=== PATIENT | female | born 1950 | race African-American/Black ===

== ENCOUNTER 2016-10-23 00:55 | Inpatient (IN) ==
--- NOTE | 2016-10-23 03:03 | Emergency Department Note ---
Arrival - Arrival Chief Complaint: Shortness of Breath Stated Complaint: low H/H ED Nursing Triage Note: Patient to ED via EMS as a transfer from [facility] ED for further treatment of SOB and low H/H. Patient became SOB yesterday around 1400, and got worse which prompted her to go to the ED. Labs shown H/H of 06/14 RBC 2.4 PLT 531. Patient denies any bleeding but states she has chronic anemia and the doctor at [facility] told patient she had some blood in her stool. Patient denies recent color change in her stools. Patient arrives with 1 unit PRBC infusing. Mode of Arrival: Stretcher Time Seen by Provider: 10/23/16 02:20 - History of Present Illness HPI Narrative: This is a 66-year-old female of descent with a history of hypertension who presents with a hemoglobin of 4 from [facility] where she presented for shortness of breath. She has received 1 unit of packed red blood cells and was transferred to [facility] for admission. The patient recalls that in 1977 she had heavy menstrual periods and required a blood transfusion at that time. She does not recall if she has had a hysterectomy. She denies any blood in her stools but says that the physician at the other hospital did a rectal exam and found that her stool was guaiac positive. At the time of her last transfusion it was discovered by virtue of the fact that she had a syncopal episode. Date of Last Menstrual Period: menopause Allergies/Adverse Reactions: Allergies Allergy/AdvReac Type Severity Reaction Status Date / Time celecoxib [From Celebrex] Allergy HIVES Verified 10/23/16 01:08 Review of System - Review of System Constitutional: Absent: fever, weakness Eyes: Absent: redness Head/Ears/Nose/Throat: Absent: epistaxis Respiratory: Present: other (Shortness of breath). Absent: respiratory distress , wheezing Cardiovascular: Absent: dyspnea on exertion, orthopnea Gastrointestinal: Absent: diarrhea, hematemesis, melena Genitourinary female: Absent: frequency, genital lesions, hematuria Musculoskeletal: Absent: joint swelling, lower back pain Skin: Absent: change in color, change in hair/nails Neurological: Absent: numbness, paresthesias Psychiatric: Absent: suicidal thoughts, homicidal thoughts Endocrine: Absent: heat intolerance, polydipsia, polyuria Hematological/Lymphatic: Absent: easy bruising, lymphadenopathy Allergic/Immunologic: Absent: urticaria, itchy eyes Medical,Surgical,& Family Hx - Medical History Cardio: History of: Hypertension Endocrine: History of: Diabetes Mellitus (NIDDM) Hematology: History of: Anemia - Social History Smoking Status: Never smoker Frequency of Alcohol Use: None Type of Drug Use: None Exam Vital Signs: Vital Signs Temperature 99.2 F 10/23/16 01:02 Pulse Rate 92 H 10/23/16 01:02 Respiratory Rate 20 10/23/16 01:02 Blood Pressure 129/63 10/23/16 01:02 O2 Sat by Pulse Oximetry 100 10/23/16 01:02 - Head Head exam: Present: atraumatic - Eye Eye exam: Present: PERRL, EOMI - ENT ENT exam: Present: normal exam - Neck Neck exam: Present: normal inspection, full ROM - Chest Chest inspection: Present: normal inspection, symmetric chest wall rise - Respiratory Respiratory exam: Present: normal lung sounds bilaterally - Cardiovascular Cardiovascular exam: Present: regular rate, normal rhythm - Abdominal Exam Abdominal exam: Present: soft, normal bowel sounds - Rectal Exam Rectal exam: Present: other (The rectal examination at [facility] was reported to be guaiac positive) - Extremities Exam Extremities exam: Present: normal inspection, full ROM - Back Exam Back exam: Present: normal inspection, full ROM - Neurological Exam Neurological exam: Present: alert, oriented X3 - Psychiatric Psychiatric exam: Present: normal affect - Skin Skin exam: Present: warm, dry
--- NOTE | 2016-10-23 03:46 | Hospitalist History & Physical ---
Assessment and Plan (1) Acute blood loss anemia Status: Acute Assessment and plan: The doctor at [facility] told patient she had some blood in her stool. Patient had never noticed. Plan transfuse with 2 more units of blood, follow cbc afterwards IV protonix NPO till GI evaluates GI consult INR Fe studies IVF Stool for occult blood Current Visit: Yes (2) HTN (hypertension) Status: Acute Assessment and plan: stable Current Visit: Yes (3) Diabetes mellitus Status: Acute Assessment and plan: will place on SSC, accu cheks and get HbA1c level. Current Visit: Yes (4) Symptomatic anemia Status: Acute Assessment and plan: Patient became short winded with a H/H-4.9/17.2. Plan Transfuse with 2more units, GI consult. Current Visit: Yes History of Present Illness Chief complaint: SOB History of present illness: Ms. Avina is a 66 year old female with a history of HTN, DM, anemia who was sent from [facility] for evaluation of low H/H of 4.9/17.2. She was well until yesterday when she became short winded and weak. She denies light headedness, chest pain, and chest tightness. No nausea, vomiting,abdominal pain, hemetesis or melena stools.No history of liver disease, no bleeding problems and not on any blood thinners, aspirin or NSAIDs. She has a history of anemia which was said to be secondary to her heavy menstrual bleeds but she has been menopausal for the last 6-8yrs. The doctor at [facility] told patient she had some blood in her stool which she had never noticed. She was transferred with 1 unit of PRBc transfusing .She is currently hemodynamically stable. Allergies Allergy/AdvReac Type Severity Reaction Status Date / Time celecoxib [From Celebrex] Allergy HIVES Verified 10/23/16 01:08 Medical,Surgical,& Family Hx - Medical History Cardio: History of: Hypertension Endocrine: History of: Diabetes Mellitus (NIDDM) Hematology: History of: Anemia - Social History Smoking Status: Never smoker Frequency of Alcohol Use: None Type of Drug Use: None 12 point system: reviewed and no additional remarkable complaints except as stated Exam - Constitutional Vitals: Period Temp Pulse Resp BP Sys/Thompson Pulse Ox Last 24 Hr 99.2 F-99.2 F 92-92 20-20 129-129/63-63 100 General appearance: no acute distress - Head Head exam: Present: normal inspection - Respiratory Respiratory exam: Present: clear to auscultation bilaterally - Cardiovascular Cardiovascular exam: Present: regular rate and rhythm - GI/Abdominal GI/Abdominal exam: Present: normal bowel sounds - Extremities Exam Extremities exam: Present: normal inspection - Neurological Exam Neurological exam: Present: alert, oriented X3 Results - Labs Lab Results: I have reviewed the past 24 hour labs
[2016-10-23] MEDS ORDERED: SODIUM CHLORIDE 0.9% 250 ML IV PRN (05:16)
[2016-10-23] MEDS ORDERED: ACETAMINOPHEN 325 MG TABLET PO PRN (05:16)
[2016-10-23 07:05] LABS: % Iron Saturation 13.4 % (18-50); Free T4 (Free Thyroxine) 1.09 NG/DL (0.76-1.46)
[2016-10-23] MEDS: SODIUM CHLORIDE 0.9% 1,000 ML IV SCH (08:16)
[2016-10-23 08:51] LABS: Basophils % 0.3 % (0.0-0.8); Eosinophils # 0.1 10*3/uL (0.0-0.87); Eosinophils % 1.3 % (0.00-10.9); Hematocrit 19.9 VOL% (35.7-47.0); Immature Granulocytes % 0.4 %; Immature Granulocytes Absolute 0.03 #; Lymphocytes # 0.9 10*3/uL (1.4-4.0); Lymphocytes % 13.4 % (21.3-54.2); Mean Corpuscular HGB Conc 31.2 GM/DL (32-36); Mean Corpuscular Hemoglobin 22 PG (27-34); Mean Corpuscular Volume 71.6 FL (87-102); Mean Platelet Volume 10.4 FL (9.6-12.0); Monocytes # 0.7 10*3/uL (0.11-0.8); Monocytes % 9.6 % (1.7-12.7); Neutrophils # 5.2 10*3/uL (1.4-7.4); Platelet Count 451 T/CUMM (130-400); Red Blood Count 2.78 MC/CUMM (3.8-5.5); Red Cell Distribution Width 19.1 % (9.3-17.3); White Blood Count 6.9 T/CUMM (4-12)
[2016-10-23 08:55] LABS: Hemoglobin 6.2 GM/DL (12.0-16.0)
--- NOTE | 2016-10-23 08:58 | Gastrointestinal Consult Note ---
Assessment and Plan - Time spent with patient Time spent with patient: Greater than 30 minutes (1) Symptomatic anemia Status: Acute Current Visit: Yes (2) Other specified counseling Status: Acute Current Visit: Yes History of Present Illness History of present illness: Ms. Avina is a 66 year old female Home Medications Medication Instructions Recorded Confirmed Type Albuterol Sulfate [Proair HFA] 2 puff INH Q4HR PRN 10/23/16 10/23/16 History Aspirin 81 mg PO DAILY 10/23/16 10/23/16 History Atorvastatin Calcium 20 mg PO DAILY 10/23/16 10/23/16 History Ergocalciferol (Vitamin D2) 50,000 unit PO Q7DAY 10/23/16 10/23/16 History [Vitamin D2] Ferrous Sulfate 325 mg PO TID 10/23/16 10/23/16 History Fluorometholone 0.1% Oph Susp [FML 1 drop BOTH EYES BID 10/23/16 10/23/16 History 0.1% Oph Susp] Loratadine 10 mg PO DAILY 10/23/16 10/23/16 History Magnesium Oxide [Magox 400] 400 mg PO DAILY 10/23/16 10/23/16 History Metformin HCl 2,000 mg PO DAILY 10/23/16 10/23/16 History Potassium Chloride 20 meq PO DAILY 10/23/16 10/23/16 History Quinapril HCl 40 mg PO DAILY 10/23/16 10/23/16 History Tizanidine HCl 2 mg PO BID PRN 10/23/16 10/23/16 History Travoprost 0.004% Oph Soln 1 drop MISC DAILY 10/23/16 10/23/16 History [Travatan Z] hydroCHLOROthiazide 25 mg PO DAILY 10/23/16 10/23/16 History [Hydrochlorothiazide] Allergies Allergy/AdvReac Type Severity Reaction Status Date / Time celecoxib [From Celebrex] Allergy HIVES Verified 10/23/16 01:08 Medical,Surgical,& Family Hx - Medical History Cardio: History of: Hypertension Endocrine: History of: Diabetes Mellitus (NIDDM) Hematology: History of: Anemia - Family History Family History: Reports;: Family Hypertension (mother) - Social History Smoking Status: Never smoker Frequency of Alcohol Use: None Type of Drug Use: None Exam - Constitutional Vitals: Period Temp Pulse Resp BP Sys/Thompson Pulse Ox Last 24 Hr 98.7 F-99.2 F 73-92 18-20 111-129/57-68 100-100 Results - Labs CBC & BMP: 10/23/16 10:13 Quality Measures - VTE Contraindication to Pharmacological VTE Prophylaxis: Active Bleeding Note Addendum: PLEASE NOTE -- automatic citation of patient information is unavoidable in this electronic note. I have made a reasonable effort to review the information cited , but it is not a part of my evaluation, impression, or recommendation unless specifically discussed in the dictated text that follows. As well, voice recognition software was used in the creation of this clinical note. Reasonable effort was made to identify and correct gross errors. Despite proofreading, errors in [employer] consultant may be present, including nonsense verbiage at times. If you encounter such an error, please contact me at for discussion and correction. -- Gorge Chief complaint: anemia, fatigue History of present illness: This is a new patient, a 66-year-old female seen by consultation for evaluation of symptomatic anemia with intractable fatigue. The patient is admitted to the telemetry floor under the care of Dr. Lemos with a primary diagnosis of acute blood loss anemia. The patient was admitted by transfer from [facility] with primary complaint of intractable fatigue. Evaluation at that time revealed severe anemia with hemoglobin less than 5 g/dL. There is equivocal report of a positive observation of blood in the stool, but I think this is actually a positive fecal occult blood test. The patient herself has not seen any change in her bowel pattern, neither has she seen overt blood in her stool. She reports several months history of anorexia with early satiety and an associated weight loss of more than 25 pounds from a baseline of 150 pounds. She reports that food just doesn't taste good anymore. When she tries to eat, she is able to chew, transfer, and swallow without difficulty. She has had colonoscopy in the past, several years ago with Dr. Mejia, and does not recall any finding at that time. She is unaware of any family history of colorectal cancer or gastric cancer. She is a little hungry at present. Patient denies fever, chills, night sweats, rigors, headache, neck pain, visual changes, redness of the eyes, dysphagia, odynophagia, difficulty chewing, chest pain, shortness of breath, abdominal pain, nausea, vomiting, hematemesis, diarrhea, hematochezia, melena, proctalgia, constipation, change in bowel pattern generally, dysuria, skin changes, temperature regulation issues, flushing, easy bleeding/bruising, musculoskeletal pain, mental status change, numbness/weakness in the extremities, yellowing of the eyes/skin, cutaneous eruptions, family history of gastrointestinal cancer and colon polyps, and other complaints in general. Review of systems: 12 point review of systems was negative except as documented above. Outpatient medications: loratadine, aspirin, magnesium oxide, iron sulfate, vitamin D2, albuterol, Quinapril, tizanidine, atorvastatin, potassium chloride, Metformin, hydrochlorothiazide Inpatient medications: Tylenol, Protonix, normal saline infusion Past Medical History: hypertension, diabetes, anemia Social history: negative tobacco. Negative alcohol Family history: no gastrointestinal cancers Physical examination: Vital Signs: Current vital signs reviewed and documented above. General Appearance: well-appearing. Not acutely ill. Head: Normocephalic. Neck: Palpation of the neck revealed no abnormalities. Eyes: No scleral icterus. No scleral injection. No conjunctival pallor. Oral Cavity: Odor of breath was normal. No drooling was observed. Lips showed no abnormalities. Floor of the mouth showed no abnormalities. Pharynx: Oropharynx was normal. Lungs: Respiration rhythm and depth was normal. Cardiovascular: Heart rate and rhythm were normal. No murmurs were appreciated. Abdomen: abdomen was not distended. Abdominal palpation revealed no tenderness and no hepatosplenomegaly. Ascites was not discovered. Abdominal auscultation revealed positive bowel sounds. Musculoskeletal System: Musculoskeletal system was grossly normal. Neurological: level of consciousness was normal. Speech was normal. Skin: General appearance was normal. Color and pigmentation were normal. No skin lesions. Laboratory: hemoglobin 6.2, hematocrit 19.9, MCV 71.6, platelets 451 Radiology: reviewed Impressions: 1. Symptomatic anemia -- the differential diagnosis includes occult gastrointestinal blood loss (including gastrointestinal malignancy), gastric outlet obstruction, gastroparesis, malnutrition, gastritis/esophagitis, infectious/inflammatory enterocolitis, arteriovenous malformation, hemorrhoidal bleeding, colon polyps and others. I recommend serial hemoglobin and hematocrit monitoring with transfusion as indicated. I recommend continued crystalloid resuscitation as indicated. I recommend intravenous proton pump inhibitor. Patient will need diagnostic upper endoscopy and colonoscopy with timing dependent on clinical progress. We will start with upper endoscopy, likely Tuesday. If negative, patient will need colonoscopy with timing at the discretion of Dr. Robertson. I recommend screening albumin/pre-albumin, fat- soluble vitamins, iron panel, B12/folate and micronutrients. I recommend a nutrition consult for evaluation of current dietary practices and counseling regarding healthy weight maintenance. 2. Other specified counseling -- The patient was seen for greater than 30 minutes. The patient was counseled for greater than 50% of this time regarding differential diagnosis, likely diagnosis, diagnostic and therapeutic alternatives, risks/benefits/alternatives of medications and procedures, and plan of care generally. The patient expressed understanding and wishes to proceed. Recommendations: -- continued crystalloid resuscitation -- transfusion as indicated -- serial hemoglobin and hematocrit monitoring -- upper endoscopy with timing dependent on clinical progress, likely Tuesday -- colonoscopy with timing dependent on clinical progress -- screen iron stores, B-12/folate, fat-soluble vitamins, albumin/pre-albumin, and micronutrients -- nutrition consult -- patient may need video capsule endoscopy if upper and lower endoscopy is nondiagnostic -- thank you for consultation. We will continue to follow with you.
[2016-10-23] MEDS ORDERED: GLUCAGON 1 MG VIAL IM PRN (09:38)
[2016-10-23] MEDS ORDERED: DEXTROSE 50% 25 GM/50 ML VIAL IV PRN (09:38)
--- NOTE | 2016-10-23 09:38 | Hospitalist Progress Note ---
Assessment and Plan - Time spent with patient Time spent with patient: Less than 30 minutes (1) Acute blood loss anemia Status: Acute Assessment and plan: GI has been consulted to assist. She is being transfused and we are obtaining serial hemoglobin and hematocrits. PPI is being administered as well. Current Visit: Yes (2) HTN (hypertension) Status: Chronic Assessment and plan: Blood pressures are currently stable. Continue current regimen. Current Visit: Yes Qualifiers: Hypertension type: essential hypertension Qualified Code(s): I10 - Essential (primary) hypertension (3) Diabetes mellitus Status: Chronic Assessment and plan: We will place on Accu-Cheks with sliding scale insulin into her diet is resumed. Current Visit: Yes Qualifiers: Diabetes mellitus type: type 2 Hospitalist: Subjective Interval history: Patient was seen and admitted last night. 66-year-old female who states that she had some shortness of breath yesterday and was seen at [facility] and noted to be anemic. She was transfused in route and has been admitted to the hospitalist service. She denies any gross bleeding at this time. Exam - Constitutional Vitals: Period Temp Pulse Resp BP Sys/Thompson Pulse Ox Last 24 Hr 98.7 F-99.2 F 73-92 18-20 111-129/57-68 100-100 General appearance: no acute distress - Head Head exam: Present: normocephalic, atraumatic - Eye Eye exam: Present: EOMI Pupils: Present: NAKUL - ENT ENT exam: Present: normal exam - Respiratory Respiratory exam: Present: clear to auscultation bilaterally - Cardiovascular Cardiovascular exam: Present: regular rate and rhythm - GI/Abdominal GI/Abdominal exam: Present: normal bowel sounds, soft. Absent: tenderness, rebound - Extremities Exam Extremities exam: Absent: calf tenderness, edema - Neurological Exam Neurological exam: Present: alert, oriented X3, CN II-XII intact. Absent: motor sensory deficit - Psychiatric Psychiatric exam: Present: normal affect, normal mood. Absent: agitated, anxious - Skin Skin exam: Present: warm, dry. Absent: erythema Results - Labs CBC & BMP: 10/23/16 08:15 Lab Results: I have reviewed the past 24 hour labs Quality Measures - VTE Contraindication to Pharmacological VTE Prophylaxis: Active Bleeding
[2016-10-23] MEDS ORDERED: ALBUTEROL 2.5 MG/3 ML NEB RESP TX PRN (09:39)
[2016-10-23 10:36] LABS: Hematocrit 19.4 VOL% (35.7-47.0)
[2016-10-23 12:28] LABS: Ferritin 2.2 ng/ml (8-252); Prealbumin 14.5 MG/DL (20-40)
[2016-10-23] MEDS: INSULIN REGULAR 100 UNIT/ML SUBCUT SCH ×3 (12:32→21:54)
[2016-10-23 12:47] LABS: 25 Hydroxy Vitamin D Total 38.6 NG/ML; Folate 12.9 NG/ML (5.4-24.0)
[2016-10-23] MEDS: PANTOPRAZOLE 40 MG VIAL IV SCH (14:20)
[2016-10-23 19:20] LABS: Hematocrit 25.2 VOL% (35.7-47.0); Hemoglobin 8.2 GM/DL (12.0-16.0)
[2016-10-23] MEDS: FLUOROMETHOLONE 0.1% OPH SUSP 5 ML BOTTLE BOTH EYES SCH (21:54)
[2016-10-23] MEDS: TRAVOPROST 0.004% OPH SOLN 2.5 ML BOTTLE BOTH EYES SCH (21:54)
[2016-10-24 01:04] LABS: Apearance,Urine CLEAR (Clear); Bilirubin,Urine Negative (Negative); Blood, Urine Negative (Negative); Glucose,Urine (UA) Negative (Negative); Ketones,Urine Negative (Negative); Mucus,Urine Occasional /LPF (Occasional); Nitrite,Urine Negative (Negative); Protein,Urine Negative; Squamous Epithelial Cell,Urine Occasional /HPF (0-10); Urine Color Straw (Yellow); Urine Specific Gravity 1.006 (1.001-1.035); Urine Urobilinogen < 2.0 EU/DL (0.2-1.0); WBC,Urine 1 /HPF (0-6)
[2016-10-24 01:11] LABS: Hematocrit 25.3 VOL% (35.7-47.0); Hemoglobin 8.2 GM/DL (12.0-16.0)
[2016-10-24 05:21] LABS: Basophils % 0.4 % (0.0-0.8); Eosinophils # 0.1 10*3/uL (0.0-0.87); Eosinophils % 1.6 % (0.00-10.9); Hematocrit 24.7 VOL% (35.7-47.0); Hemoglobin 8.1 GM/DL (12.0-16.0); Immature Granulocytes % 0.6 %; Immature Granulocytes Absolute 0.04 #; Lymphocytes # 0.7 10*3/uL (1.4-4.0); Lymphocytes % 10.5 % (21.3-54.2); Mean Corpuscular HGB Conc 32.8 GM/DL (32-36); Mean Corpuscular Hemoglobin 24 PG (27-34); Mean Platelet Volume 10.4 FL (9.6-12.0); Monocytes # 0.7 10*3/uL (0.11-0.8); Monocytes % 10.3 % (1.7-12.7); Neutrophils # 5.4 10*3/uL (1.4-7.4); Neutrophils % 76.6 % (38.7-73.9); Platelet Count 400 T/CUMM (130-400); Red Blood Count 3.34 MC/CUMM (3.8-5.5); Red Cell Distribution Width 19.3 % (9.3-17.3)
[2016-10-24 05:33] LABS: Albumin 2.5 G/DL (3.4-5.0); Bilirubin,Total 0.9 MG/DL (0.2-1.0); Osmolality,Calculated 280.1 MOS/KG (273-304); Potassium 3.9 MMOL/L (3.5-5.1); Total Protein 5.6 G/DL (6.4-8.3)
[2016-10-24] MEDS: INSULIN REGULAR 100 UNIT/ML SUBCUT SCH ×4 (08:55→20:36)
[2016-10-24] MEDS ORDERED: metFORMIN 500 MG TABLET PO SCH (09:00)
--- NOTE | 2016-10-24 09:31 | Hospitalist Progress Note ---
Assessment and Plan - Time spent with patient Time spent with patient: Less than 30 minutes (1) Acute blood loss anemia Status: Acute Assessment and plan: GI has been consulted to assist. She is being transfused and we are obtaining serial hemoglobin and hematocrits. PPI is being administered as well. 10/24/16: Patient is currently asymptomatic and H&H is stable. Continuing PPI. GI has been consulted and plan endoscopic evaluation on Tuesday. She is otherwise stable and will transfer off the telemetry floor to a regular bed. Current Visit: Yes (2) HTN (hypertension) Status: Chronic Assessment and plan: Blood pressures are currently stable. Continue current regimen. Current Visit: Yes Qualifiers: Hypertension type: essential hypertension Qualified Code(s): I10 - Essential (primary) hypertension (3) Diabetes mellitus Status: Chronic Assessment and plan: We will place on Accu-Cheks with sliding scale insulin into her diet is resumed. Current Visit: Yes Qualifiers: Diabetes mellitus type: type 2 Hospitalist: Subjective Interval history: She has no complaints at this time. She is visualized no gross bleeding. She is tolerating her diet and having no abdominal pain, nausea, vomiting. Exam - Constitutional Vitals: Period Temp Pulse Resp BP Sys/Thompson Pulse Ox Last 24 Hr 96.5 F-99 F 60-78 16-20 101-133/52-69 97-100 General appearance: no acute distress - Head Head exam: Present: normocephalic, atraumatic - Eye Eye exam: Present: EOMI Pupils: Present: NAKUL - ENT ENT exam: Present: normal exam - Neck Neck exam: Present: normal inspection - Respiratory Respiratory exam: Present: clear to auscultation bilaterally - Cardiovascular Cardiovascular exam: Present: regular rate and rhythm. Absent: tachycardia - GI/Abdominal GI/Abdominal exam: Present: normal bowel sounds, soft. Absent: tenderness, rebound - Extremities Exam Extremities exam: Absent: calf tenderness, edema - Neurological Exam Neurological exam: Present: alert, oriented X3, CN II-XII intact. Absent: motor sensory deficit - Psychiatric Psychiatric exam: Present: normal affect, normal mood. Absent: agitated, anxious - Skin Skin exam: Present: warm, dry. Absent: erythema Results - Labs CBC & BMP: 10/24/16 04:32 10/24/16 04:32 Lab Results: I have reviewed the past 24 hour labs Quality Measures - VTE Contraindication to Pharmacological VTE Prophylaxis: Active Bleeding
[2016-10-24] MEDS: ATORVASTATIN 20 MG TABLET PO SCH (09:56)
[2016-10-24] MEDS: PANTOPRAZOLE 40 MG VIAL IV SCH (09:56)
[2016-10-24] MEDS: LORATADINE 10 MG TABLET PO SCH (09:56)
[2016-10-24] MEDS: hydroCHLOROthiazide 25 MG TABLET PO SCH (09:56)
[2016-10-24] MEDS: FLUOROMETHOLONE 0.1% OPH SUSP 5 ML BOTTLE BOTH EYES SCH ×2 (09:57→20:47)
[2016-10-24] MEDS: POTASSIUM CHLORIDE 20 MEQ TABLET PO SCH (09:57)
[2016-10-24] MEDS: TRAVOPROST 0.004% OPH SOLN 2.5 ML BOTTLE BOTH EYES SCH ×2 (09:57→10:03)
[2016-10-24] MEDS: MAGNESIUM OXIDE 400 MG TABLET PO SCH (09:57)
[2016-10-24] MEDS: SODIUM CHLORIDE 0.9% 1,000 ML IV SCH ×3 (11:01→20:45)
[2016-10-24 12:18] LABS: Hematocrit 25.1 VOL% (35.7-47.0)
--- NOTE | 2016-10-24 14:58 | Gastrointestinal Progress Note ---
Assessment and Plan - Time spent with patient Time spent with patient: Greater than 30 minutes (1) Iron deficiency anemia Status: Acute Current Visit: Yes (2) Other specified counseling Status: Acute Current Visit: Yes Exam (Progress Note) - Constitutional Vitals: Period Temp Pulse Resp BP Sys/Thompson Pulse Ox Last 24 Hr 97.1 F-99 F 60-74 16-20 117-133/52-68 97-100 Results - Labs CBC & BMP: 10/24/16 15:54 10/24/16 04:32 Note Addendum: PLEASE NOTE -- automatic citation of patient information is unavoidable in this electronic note. I have made a reasonable effort to review the information cited , but it is not a part of my evaluation, impression, or recommendation unless specifically discussed in the dictated text that follows. As well, voice recognition software was used in the creation of this clinical note. Reasonable effort was made to identify and correct gross errors. Despite proofreading, errors in shake backboard notcher may be present, including nonsense verbiage at times. If you encounter such an error, please contact me at [phone] for discussion and correction. -- Gorge Chief complaint: anemia, fatigue History of present illness: the patient is a 66-year-old female seen for follow- up of lower gastrointestinal bleeding with symptomatic anemia. The patient received a total of two units of red blood cells. Her blood counts have been stable over the course of the day today. She is tolerating oral intake. Iron stores are low and other nutritional parameters are marginal. She has one bowel movement overnight with no blood observed. Otherwise, she reports feeling well at present. Review of systems: 12 point review of systems was negative except as documented above. Inpatient medications: Tylenol, Protonix, albuterol, Lipitor, Crystal, hydrochlorothiazide, insulin, Claritin, metformin, potassium chloride, Zanaflex , normal saline infusion Physical examination: Vital Signs: Current vital signs reviewed and documented above. General Appearance: well-appearing. Not acutely ill. Head: Normocephalic. Neck: Palpation of the neck revealed no abnormalities. Eyes: No scleral icterus. No scleral injection. No conjunctival pallor. Oral Cavity: Odor of breath was normal. No drooling was observed. Lips showed no abnormalities. Floor of the mouth showed no abnormalities. Pharynx: Oropharynx was normal. Lungs: Respiration rhythm and depth was normal. Cardiovascular: Heart rate and rhythm were normal. No murmurs were appreciated. Abdomen: abdomen was not distended. Abdominal palpation revealed no tenderness and no hepatosplenomegaly. Ascites was not discovered. Abdominal auscultation revealed positive bowel sounds. Musculoskeletal System: Musculoskeletal system was grossly normal. Neurological: level of consciousness was normal. Speech was normal. Skin: General appearance was normal. Color and pigmentation were normal. No skin lesions. Laboratory: hemoglobin 8.0, hematocrit 25.1, ferritin 2.2, iron saturation 13.4% , pre-albumin 14.5, B12 286, vitamin D 38.6, folate 12.9 Radiology: reviewed Impressions: 1. Iron deficiency anemia -- the differential diagnosis is unchanged. I recommend continued hemoglobin and hematocrit monitoring with transfusion as indicated. I recommend continued crystalloid resuscitation as indicated. I recommend intravenous proton pump inhibitor. We will plan upper endoscopy Tuesday. Patient will also need colonoscopy with timing at the discretion of Dr. Robertson. I recommend a nutrition consult for evaluation of current dietary practices and counseling regarding healthy weight maintenance. 2. Other specified counseling -- The patient was seen for less than 30 minutes. The patient was counseled for greater than 50% of this time regarding differential diagnosis, likely diagnosis, diagnostic and therapeutic alternatives, risks/benefits/alternatives of medications and procedures, and plan of care generally. The patient expressed understanding and wishes to proceed. Recommendations: -- continued crystalloid resuscitation -- transfusion as indicated -- serial hemoglobin and hematocrit monitoring -- upper endoscopy Tuesday -- colonoscopy with timing dependent on clinical progress -- nutrition consult -- patient may need video capsule endoscopy if upper and lower endoscopy is nondiagnostic -- thank you for consultation. Dr. Robertson will assume G.I. care for this patient tomorrow.
[2016-10-24 16:07] LABS: Hematocrit 26.5 VOL% (35.7-47.0); Hemoglobin 8.6 GM/DL (12.0-16.0)
[2016-10-25 01:41] LABS: Hematocrit 28.6 VOL% (35.7-47.0)
[2016-10-25 06:31] LABS: Calcium 8.6 MG/DL (8.5-10.1); Magnesium 2.1 MG/DL (1.8-2.4); Potassium 3.9 MMOL/L (3.5-5.1)
[2016-10-25] MEDS: INSULIN REGULAR 100 UNIT/ML SUBCUT SCH ×4 (07:35→21:32)
[2016-10-25 08:30] LABS: Hematocrit 26.6 VOL% (35.7-47.0); Hemoglobin 8.4 GM/DL (12.0-16.0)
[2016-10-25] MEDS ORDERED: CYANOCOBALAMIN 1000 MCG/1 ML VIAL IM SCH (11:30)
[2016-10-25] MEDS ORDERED: LIDOCAINE 2% 5 ML VIAL ONE (12:38)
[2016-10-25] MEDS ORDERED: PROPOFOL 200 MG/20 ML VIAL IV ONE (12:38)
--- NOTE | 2016-10-25 12:42 | History and Physical Update ---
History and Physical Update - Physical Exam Mental Status: alert and oriented Heart: regular rate and rhythm Lung: clear to auscultation Abdomen: within normal limits Vitals: within normal limits History and Physical Changes: 66-year-old female is admitted with symptomatic iron deficiency anemia and recent weight loss.
--- NOTE | 2016-10-25 12:48 | Operative Note ---
Date of procedure: 10/25/16 Pre-op diagnosis: Iron deficiency anemia Procedure: Procedure: Esophagogastroduodenoscopy Brief clinical abstract: 66-year-old female is admitted with symptomatic iron deficiency anemia. She has lost 20 pounds weight recently involuntarily with poor appetite but denies any real localizing symptoms with this. Indication for procedure: Iron deficiency anemia Endoscopic findings:[After informed consent was obtained, the patient was placed in the left lateral decubitus position. The gastroscope was inserted in the upper esophagus under direct vision with no resistance encountered. Esophageal mucosa appeared normal with squamocolumnar junction sharply demarcated above a small 1-2 cm height hernia. There were no erosions or ulcerations at this level. The endoscope was advanced in the stomach which was carefully examined including retroflexed view of the cardia and fundus with no abnormality seen. The pyloric channel, duodenal bulb, second and third portion of the duodenum appeared normal. The endoscope was withdrawn and patient appeared to tolerate the procedure well. Impression: Small hiatal hernia-otherwise normal EGD Recommendations: Plan colonoscopy. Would do tomorrow if still inpatient. Anesthesia: MAC Surgeon / Physician: Derrell Watkins Estimated blood loss: none Specimens: none sent Condition: stable Disposition: post procedure unit Results - Labs CBC & BMP: 10/25/16 08:06 10/25/16 04:40 Discharge Plan - Discharge Medications No Action Aspirin 81 mg PO DAILY Magnesium Oxide [Magox 400] 400 mg PO DAILY Ferrous Sulfate 325 mg PO TID Albuterol Sulfate [Proair HFA] 2 puff INH Q4HR PRN PRN Reason: Shortness Of Breath/Wheezing Quinapril HCl 40 mg PO DAILY Tizanidine HCl 2 mg PO BID PRN PRN Reason: Muscle Pain Atorvastatin Calcium 20 mg PO DAILY Potassium Chloride 20 meq PO DAILY Metformin HCl 2,000 mg PO DAILY Travoprost 0.004% Oph Soln [Travatan Z] 1 drop MISC DAILY Fluorometholone 0.1% Oph Susp [FML 0.1% Oph Susp] 1 drop BOTH EYES BID Loratadine 10 mg PO DAILY Ergocalciferol (Vitamin D2) [Vitamin D2] 50,000 unit PO Q7DAY hydroCHLOROthiazide [Hydrochlorothiazide] 25 mg PO DAILY - Follow Up or Referral - Forms/Instructions
--- NOTE | 2016-10-25 12:58 | Anesthesia Post-Op ---
Anesthesia Post OP - Post Ansesthetic Evaluation Patient seen in post op: Yes Resp: within normal limits CV: within normal limits Mental: within normal limits Temp: within normal limits [id number]-[id number]: within normal limits Nausea and Vomiting: within normal limits Pain: within normal limits
[2016-10-25] MEDS: MAGNESIUM OXIDE 400 MG TABLET PO SCH (13:55)
[2016-10-25] MEDS: metFORMIN 500 MG TABLET PO SCH (13:55)
[2016-10-25] MEDS: ATORVASTATIN 20 MG TABLET PO SCH (13:55)
[2016-10-25] MEDS: PANTOPRAZOLE 40 MG VIAL IV SCH (13:56)
[2016-10-25] MEDS: POTASSIUM CHLORIDE 20 MEQ TABLET PO SCH (13:56)
[2016-10-25] MEDS: hydroCHLOROthiazide 25 MG TABLET PO SCH (13:56)
[2016-10-25] MEDS: LORATADINE 10 MG TABLET PO SCH (13:56)
[2016-10-25] MEDS: TRAVOPROST 0.004% OPH SOLN 2.5 ML BOTTLE BOTH EYES SCH (14:04)
[2016-10-25] MEDS: FLUOROMETHOLONE 0.1% OPH SUSP 5 ML BOTTLE BOTH EYES SCH ×2 (14:04→21:32)
[2016-10-25] MEDS: IRON (CARBONYL) 45 MG TABLET PO SCH ×2 (15:12→21:31)
--- NOTE | 2016-10-25 15:52 | Hospitalist Progress Note ---
Hospitalist: Subjective Interval history: 66-year-old female was admitted with severe symptomatic anemia that required blood transfusion as well as iron and B12 supplements. She underwent an EGD today. Exam - Constitutional Vitals: Period Temp Pulse Resp BP Sys/Thompson Pulse Ox Last 24 Hr 97.4 F-98.5 F 62-77 12-20 121-157/56-69 95-100 Exam: General: No Acute Distress HEENT: Normocephalic, atraumatic, Extra ocular movements intact Neck: Supple, No JVD Chest: Clear to auscultation B/L CV: S1 + S2 audible without murmur, gallop or rub Abd: soft, NT, Non-distended, BS + Ext: No edema Skin: No purpura, bruising or rash Rheumatologic: No Joint deformities Neurologic: Strength 5/5 all extremities, no gross sensory deficits Results - Labs CBC & BMP: 10/25/16 08:06 10/25/16 04:40 - Impressions Assessment and Plan: Anemia Status: Acute Assessment and plan: This is multifactorial including iron and B12 deficiency. She has been started on iron supplements as well as B12 supplement. GI is planning a colonoscopy in the morning Current Visit: Yes Ess HTN Status: Chronic Assessment and plan: This is controlled, continue current regimen. Current Visit: Yes Diabetes mellitus-II Status: Chronic Assessment and plan: Quite well controlled continue to monitor Accu-Cheks Current Visit: Yes Quality Measures - VTE Contraindication to Pharmacological VTE Prophylaxis: Active Bleeding
[2016-10-25] MEDS ORDERED: POLYETHYLENE GLYCOL POWDER 255 GM BOTTLE PO ONE (18:00)
[2016-10-25] MEDS: SODIUM CHLORIDE 0.9% 1,000 ML IV SCH (21:32)
[2016-10-26] MEDS ORDERED: MAGNESIUM CITRATE 300 ML BOTTLE PO ONE (06:00)
[2016-10-26] MEDS: INSULIN REGULAR 100 UNIT/ML SUBCUT SCH ×4 (07:33→21:10)
[2016-10-26] MEDS ORDERED: LIDOCAINE 2% TOP JELLY 5 ML TUBE TOP ONE (12:20)
[2016-10-26] MEDS ORDERED: PROPOFOL 200 MG/20 ML VIAL IV ONE (12:20)
--- NOTE | 2016-10-26 12:25 | History and Physical Update ---
History and Physical Update - History and Physical H&P was reviewed, the patient examined and there: are no changes in the patients condition since last H&P was completed. - Physical Exam Mental Status: alert and oriented Heart: regular rate and rhythm Lung: clear to auscultation Abdomen: within normal limits Vitals: within normal limits
--- NOTE | 2016-10-26 12:42 | Anesthesia Post-Op ---
Anesthesia Post OP - Post Ansesthetic Evaluation Patient seen in post op: Yes Resp: within normal limits CV: within normal limits Mental: within normal limits Temp: within normal limits [id number]-Vxiyochas: within normal limits Nausea and Vomiting: within normal limits Pain: within normal limits
--- NOTE | 2016-10-26 12:44 | Operative Note ---
Date of procedure: 10/26/16 Pre-op diagnosis: Iron deficiency anemia, blood in stool Procedure: Procedure note: Colonoscopy with biopsies colonic mass Physician: Dr. Kaiden Watkins Brief clinical abstract: 66-year-old female was admitted with iron anemia and occult blood in stool. She had hemoglobin of 4.9 at initial presentation. She denies abdominal pain or localizing symptoms. Endoscopic findings: After informed consent was obtained, the patient was placed in the left lateral decubitus position. Digital rectal exam was performed with no palpable abnormalities felt. Pediatric videocolonoscope was inserted into the rectum and advanced to the mid ascending colon (by transillumination) where a circumferential near obstructive exophytic friable mass was noted. I could not pass through this to reach the cecum. Several biopsies were obtained from this for pathologic examination. Bowel prep was of good quality distal to this. No polyps or diverticuli were seen. The endoscope was withdrawn in the rectum with retroflex view showing no abnormalities. The endoscope was removed and patient appeared to tolerate the procedure well. Impression: Ascending colon mass Plan: Obtain CT abdomen/pelvis and serum CEA level. She will need surgery consultation. Anesthesia: MAC Surgeon / Physician: Derrell Watkins Estimated blood loss: minimal Specimens: other (Ascending colon mass) Condition: stable Disposition: post procedure unit Results - Labs CBC & BMP: 10/25/16 08:06 10/25/16 04:40 Discharge Plan - Discharge Medications No Action Aspirin 81 mg PO DAILY Magnesium Oxide [Magox 400] 400 mg PO DAILY Ferrous Sulfate 325 mg PO TID Albuterol Sulfate [Proair HFA] 2 puff INH Q4HR PRN PRN Reason: Shortness Of Breath/Wheezing Quinapril HCl 40 mg PO DAILY Tizanidine HCl 2 mg PO BID PRN PRN Reason: Muscle Pain Atorvastatin Calcium 20 mg PO DAILY Potassium Chloride 20 meq PO DAILY Metformin HCl 2,000 mg PO DAILY Travoprost 0.004% Oph Soln [Travatan Z] 1 drop MISC DAILY Fluorometholone 0.1% Oph Susp [FML 0.1% Oph Susp] 1 drop BOTH EYES BID Loratadine 10 mg PO DAILY Ergocalciferol (Vitamin D2) [Vitamin D2] 50,000 unit PO Q7DAY hydroCHLOROthiazide [Hydrochlorothiazide] 25 mg PO DAILY - Follow Up or Referral - Forms/Instructions
[2016-10-26] MEDS: hydroCHLOROthiazide 25 MG TABLET PO SCH (14:10)
[2016-10-26] MEDS: CYANOCOBALAMIN 500 MCG TABLET PO SCH (14:10)
[2016-10-26] MEDS: IRON (CARBONYL) 45 MG TABLET PO SCH ×3 (14:10→20:28)
[2016-10-26] MEDS: MAGNESIUM OXIDE 400 MG TABLET PO SCH (14:10)
[2016-10-26] MEDS: POTASSIUM CHLORIDE 20 MEQ TABLET PO SCH (14:10)
[2016-10-26] MEDS: ATORVASTATIN 20 MG TABLET PO SCH (14:11)
[2016-10-26] MEDS: PANTOPRAZOLE 40 MG VIAL IV SCH (14:11)
[2016-10-26] MEDS: LORATADINE 10 MG TABLET PO SCH (14:11)
[2016-10-26] MEDS: metFORMIN 500 MG TABLET PO SCH (14:11)
[2016-10-26] MEDS: TRAVOPROST 0.004% OPH SOLN 2.5 ML BOTTLE BOTH EYES SCH (14:16)
[2016-10-26] MEDS: FLUOROMETHOLONE 0.1% OPH SUSP 5 ML BOTTLE BOTH EYES SCH ×2 (14:16→20:29)
--- NOTE | 2016-10-26 15:01 | Hospitalist Progress Note ---
Assessment and Plan (1) Symptomatic anemia Status: Acute Assessment and plan: Patient was transfused 2 units of packed red blood cells. Hemoglobin has been stable at 8.6 Current Visit: Yes (2) Iron deficiency anemia Status: Acute Current Visit: Yes Qualifiers: Iron deficiency anemia type: other iron deficiency Qualified Code(s): D50.8 - Other iron deficiency anemias (3) Colonic mass Status: Acute Assessment and plan: Colonoscopy report reviewed. Consult general surgery for evaluation. Follow- up pathology report and tumor markers. Current Visit: Yes (4) HTN (hypertension) Status: Chronic Current Visit: Yes Qualifiers: Hypertension type: essential hypertension Qualified Code(s): I10 - Essential (primary) hypertension (5) Diabetes mellitus Status: Chronic Current Visit: Yes Qualifiers: Diabetes mellitus type: type 2 Hospitalist: Subjective Interval history: Patient seen and examined. No acute events overnight. Case discussed with nursing staff. Labs reviewed. Colonoscopy report reviewed. Agree with surgical consultation for mass. The patient denies any complaints. Exam - Constitutional Vitals: Period Temp Pulse Resp BP Sys/Thompson Pulse Ox Last 24 Hr 96.6 F-98.2 F 65-89 14-20 104-153/48-76 97-100 Exam: Constitutional System: No distress. No tremulousness. Head: Normocephalic, atraumatic. Ears, Nose and Throat System: No pain or tenderness. No epistaxis or discharge Eyes System: Pupils equal, round, and reactive. Extraocular muscles intact. Neck: Supple, without adenopathy, No jugular venous distention. No thyromegaly, neck mass, or prior surgery apparent. Respiratory System: Chest clear to auscultation. Cardiovascular System: Heart with regular rate and rhythm. No murmur. GI System: Abdomen soft, nontender. Normo active bowel sounds present. Musculoskeletal System: limbs with no pedal edema. Full distal pulses. Normal capillary refill. Neurological System: No discernable sensory deficit. No aphasia Psychiatric System: Conversation is rational Results - Labs CBC & BMP: 10/25/16 08:06 10/25/16 04:40 Lab Results: I have reviewed the past 24 hour labs Quality Measures - VTE Contraindication to Pharmacological VTE Prophylaxis: Active Bleeding
[2016-10-26] MEDS: SODIUM CHLORIDE 0.9% 1,000 ML IV SCH (15:12)
--- NOTE | 2016-10-26 15:28 | General Surgery Consult Note ---
Assessment and Plan (1) Colonic mass Status: Acute Assessment and plan: Impression: Colon mass, suspected in the ascending colon Plan: Patient be getting a CT scan. Probable partial colectomy later this week. Current Visit: Yes History of Present Illness Chief complaint: Anemia History of present illness: Ms. Avina is a 66 year old female who was found to have an ascending colon mass on workup for profound anemia. Patient currently has no complaints. She is sitting in bed. She underwent colonoscopy earlier today. Home Medications Medication Instructions Recorded Confirmed Type Albuterol Sulfate [Proair HFA] 2 puff INH Q4HR PRN 10/23/16 10/23/16 History Aspirin 81 mg PO DAILY 10/23/16 10/23/16 History Atorvastatin Calcium 20 mg PO DAILY 10/23/16 10/23/16 History Ergocalciferol (Vitamin D2) 50,000 unit PO Q7DAY 10/23/16 10/23/16 History [Vitamin D2] Ferrous Sulfate 325 mg PO TID 10/23/16 10/23/16 History Fluorometholone 0.1% Oph Susp [FML 1 drop BOTH EYES BID 10/23/16 10/23/16 History 0.1% Oph Susp] Loratadine 10 mg PO DAILY 10/23/16 10/23/16 History Magnesium Oxide [Magox 400] 400 mg PO DAILY 10/23/16 10/23/16 History Metformin HCl 2,000 mg PO DAILY 10/23/16 10/23/16 History Potassium Chloride 20 meq PO DAILY 10/23/16 10/23/16 History Quinapril HCl 40 mg PO DAILY 10/23/16 10/23/16 History Tizanidine HCl 2 mg PO BID PRN 10/23/16 10/23/16 History Travoprost 0.004% Oph Soln 1 drop MISC DAILY 10/23/16 10/23/16 History [Travatan Z] hydroCHLOROthiazide 25 mg PO DAILY 10/23/16 10/23/16 History [Hydrochlorothiazide] Allergies Allergy/AdvReac Type Severity Reaction Status Date / Time celecoxib [From Celebrex] Allergy HIVES Verified 10/23/16 01:08 Medical,Surgical,& Family Hx - Medical History Cardio: History of: Hypertension Neurology: No history of: Seizures Endocrine: History of: Diabetes Mellitus (NIDDM) Hematology: History of: Anemia - Family History Family History: Reports;: Family Hypertension (mother) - Social History Smoking Status: Never smoker Frequency of Alcohol Use: None Type of Drug Use: None 12 point system: reviewed and no additional remarkable complaints except as stated Exam - Constitutional Vitals: Period Temp Pulse Resp BP Sys/Thompson Pulse Ox Last 24 Hr 96.6 F-98.2 F 65-89 14-20 104-153/48-76 97-100 General appearance: no acute distress - Head Head exam: Present: normocephalic - ENT Mouth exam: Present: normal external inspection - Neck Neck exam: Present: normal inspection - Respiratory Respiratory exam: Present: clear to auscultation bilaterally - Cardiovascular Cardiovascular exam: Present: RRR - GI/Abdominal GI/Abdominal exam: Present: soft (Nontender nondistended no mass appreciated on exam) - Extremities Exam Extremities exam: Present: normal inspection - Neurological Exam Neurological exam: Present: alert, oriented X3 Speech: Present: normal - Skin Skin exam: Present: normal color Quality Measures - VTE Contraindication to Pharmacological VTE Prophylaxis: Active Bleeding Results - Labs CBC & BMP: 10/25/16 08:06 10/25/16 04:40 Lab Results: I have reviewed the past 24 hour labs
[2016-10-27] MEDS: INSULIN REGULAR 100 UNIT/ML SUBCUT SCH ×4 (07:40→20:34)
--- NOTE | 2016-10-27 08:52 | Gastrointestinal Progress Note ---
Assessment and Plan (1) Acute blood loss anemia Status: Acute Assessment and plan: 10/27-no overt bleeding has been reported. Colonoscopy findings noted as below. We will recheck H&H today. Surgery consult completed and tentative plans for colectomy later this week if patient decides to proceed. Continue to monitor at present time. Plan an addendum to followed by Dr. Watkins. Current Visit: Yes Gastroenterology - PN: Subj Interval history: CC: Anemia, blood in stool Patient is seen awake and alert sitting up in bed complaining her breakfast. States that she did rest well overnight. She is denying any abdominal pain or overt bleeding at this time. Denies any nausea or vomiting. Discussed findings again with patient on colonoscopy on yesterday regarding a sending colon mass. Surgery has consulted with patient and CT of abdomen was ordered this morning with results still pending at this time. CEA results also noted at this time in normal range at 2.3. Patient's appetite is fairly good right now. No repeat labs noted therefore we will recheck these this morning regarding her H&H. Abdomen is soft, nontender. Patient states that she and her family would like to further discuss the findings and plan with Dr. Watkins today. ROS: Denies shortness of breath or chest pain Exam (Progress Note) - Constitutional Vitals: Period Temp Pulse Resp BP Sys/Thompson Pulse Ox Last 24 Hr 96.6 F-97.9 F 65-89 14-22 104-153/48-69 96-100 General appearance: normal weight, no acute distress - Head Head exam: Present: normal inspection, normocephalic - Eye Eye exam: Present: other (Lids and conjunctive are unremarkable). Absent: scleral icterus - ENT ENT exam: Present: normal exam, normal oropharynx - Neck Neck exam: Present: normal inspection - Respiratory Respiratory exam: Present: clear to auscultation bilaterally. Absent: rales, rhonchi, wheezes - Cardiovascular Cardiovascular exam: Present: regular rate and rhythm. Absent: diastolic murmur , JVD, systolic murmur - GI/Abdominal GI/Abdominal exam: Present: normal bowel sounds, soft. Absent: ascites, distended, mass, organomegaly, tenderness - Extremities Exam Extremities exam: Present: normal inspection, full ROM - Back Exam Back exam: Present: normal inspection - Neurological Exam Neurological exam: Present: alert, oriented X3 - Psychiatric Psychiatric exam: Present: normal affect, normal mood - Skin Skin exam: Present: normal color, warm, dry Results - Labs CBC & BMP: 10/25/16 08:06 10/25/16 04:40 Lab Results: I have reviewed the past 24 hour labs
[2016-10-27] MEDS: PANTOPRAZOLE 40 MG VIAL IV SCH (09:10)
[2016-10-27] MEDS: MAGNESIUM OXIDE 400 MG TABLET PO SCH (09:11)
[2016-10-27] MEDS: ATORVASTATIN 20 MG TABLET PO SCH (09:11)
[2016-10-27] MEDS: IRON (CARBONYL) 45 MG TABLET PO SCH ×3 (09:11→20:56)
[2016-10-27] MEDS: LORATADINE 10 MG TABLET PO SCH (09:11)
[2016-10-27] MEDS: POTASSIUM CHLORIDE 20 MEQ TABLET PO SCH (09:11)
[2016-10-27] MEDS: hydroCHLOROthiazide 25 MG TABLET PO SCH (09:11)
[2016-10-27] MEDS: TRAVOPROST 0.004% OPH SOLN 2.5 ML BOTTLE BOTH EYES SCH (09:13)
[2016-10-27] MEDS: FLUOROMETHOLONE 0.1% OPH SUSP 5 ML BOTTLE BOTH EYES SCH ×2 (09:14→20:56)
[2016-10-27 09:23] LABS: Hematocrit 28.4 VOL% (35.7-47.0); Hemoglobin 8.9 GM/DL (12.0-16.0)
[2016-10-27] MEDS: metFORMIN 500 MG TABLET PO SCH (09:25)
--- NOTE | 2016-10-27 09:55 | Hospitalist Progress Note ---
Assessment and Plan (1) Symptomatic anemia Status: Acute Assessment and plan: Patient was transfused 2 units of packed red blood cells. Hemoglobin has been stable at 8.6 Current Visit: Yes (2) Iron deficiency anemia Status: Acute Current Visit: Yes Qualifiers: Iron deficiency anemia type: other iron deficiency Qualified Code(s): D50.8 - Other iron deficiency anemias (3) Colonic mass Status: Acute Assessment and plan: Colonoscopy report reviewed. General surgery consult noted. Follow-up pathology report and tumor markers. CT scan abdomen and pelvis pending. Current Visit: Yes (4) HTN (hypertension) Status: Chronic Current Visit: Yes Qualifiers: Hypertension type: essential hypertension Qualified Code(s): I10 - Essential (primary) hypertension (5) Diabetes mellitus Status: Chronic Current Visit: Yes Qualifiers: Diabetes mellitus type: type 2 Hospitalist: Subjective Interval history: Patient seen and examined. No acute events overnight. Case discussed with nursing staff. Labs reviewed. Patient has undergone CT scan of the abdomen and pelvis this morning. Surgery consult reviewed. Patient denies any symptoms or complaints. Exam - Constitutional Vitals: Period Temp Pulse Resp BP Sys/Thompson Pulse Ox Last 24 Hr 96.6 F-97.9 F 65-89 14-22 104-153/48-69 96-100 Exam: Constitutional System: No distress. No tremulousness. Head: Normocephalic, atraumatic. Ears, Nose and Throat System: No pain or tenderness. No epistaxis or discharge Eyes System: Pupils equal, round, and reactive. Extraocular muscles intact. Neck: Supple, without adenopathy, No jugular venous distention. No thyromegaly, neck mass, or prior surgery apparent. Respiratory System: Chest clear to auscultation. Cardiovascular System: Heart with regular rate and rhythm. No murmur. GI System: Abdomen soft, nontender. Normo active bowel sounds present. Musculoskeletal System: limbs with no pedal edema. Full distal pulses. Normal capillary refill. Neurological System: No discernable sensory deficit. No aphasia Psychiatric System: Conversation is rational Results - Labs CBC & BMP: 10/27/16 09:08 10/25/16 04:40 Lab Results: I have reviewed the past 24 hour labs Quality Measures - VTE Contraindication to Pharmacological VTE Prophylaxis: Active Bleeding
--- NOTE | 2016-10-27 10:08 | CT Report ---
History: Right colon mass Date: 10/27/2016 Study: CT abdomen and pelvis with IV contrast Comparison exam: No previous similar Technique: Spiral CT sections were obtained from the lung bases to the pubic symphysis following oral contrast and 100 mL Omnipaque 350 IV. Total DLP measures 511.6 mGy*cm. CT abdomen: There is trace pleural effusion on the left. There is no obvious infiltrate or mass in the partially visualized lung bases. There is minimal diffuse fatty infiltration of the liver. The liver, pancreas, bile ducts, and adrenal glands appear normal. There is prominent distention of the gallbladder. There is at least one small calcific density gallstone near the neck of the gallbladder at 6 to 7 mm diameter. There is a medium density throughout the lumen of the gallbladder otherwise with an additional noncalcified filling defect measuring up to 18 mm diameter. There could be a large amount of sludge in the gallbladder. There is no gallbladder wall thickening or abnormal pericholecystic fluid. There is a 7.6 mm simple cyst in the caudate lobe of the liver. There is a 7.2 mm simple cyst in the mid right kidney. There is a 5.9 mm fat density lesion posteriorly in the lower left kidney suggesting probable small incidental angiomyolipoma. There is masslike thickening of the wall of the cecum and portion of the ascending colon. This measures at least 7.2 cm length and 3.4 mm thickness and is consistent with colon carcinoma. This involves the ileocecal valve, though there is no definite extension into the distal ileum. The appendix appears normal. There is some mild mesenteric lymphadenopathy of a shotty nature. There is no rodolfo bowel obstruction. There is mild degenerative disc narrowing of the lumbar spine. CT pelvis: There are at least 2 areas of rounded asymmetric density in the fundus of the uterus, presumably uterine leiomyomata, the larger of which measures 3 cm diameter. There is no pelvic lymphadenopathy by short axis diameter criteria. Impression: Mass of the cecum and ascending colon compatible with colon carcinoma. There is some shotty mesenteric lymphadenopathy in the right lower quadrant. There is no definite evidence to suggest distant metastatic disease There is evidence of cholelithiasis. There is potential sludge in the prominently dilated gallbladder. 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 Dose PROCEDURE INTERPRETED AT [facility] DEPARTMENT OF RADIOLOGY Final Report Signed by: Dr. Cris Watkins
--- NOTE | 2016-10-27 10:44 | General Surgery Progress Note ---
Assessment and Plan (1) Colonic mass Status: Acute Assessment and plan: High suspicion of the lesion being cancerous. Regardless is likely the source of the bleeding and recommend right hemicolectomy. Patient requested further consultation with her family prior to any decision making. We will plan for tomorrow pending consent. We will follow-up with the patient's family once they have arrived. Current Visit: Yes Subjective Patient reports: Present: no new complaints (Denies melena or hematochezia. No nausea or vomiting pending. Tolerating soft diet.) Exam - Constitutional Vitals: Period Temp Pulse Resp BP Sys/Thompson Pulse Ox Last 24 Hr 96.6 F-97.9 F 65-89 14-22 104-167/48-73 96-100 General appearance: no acute distress - Respiratory Respiratory exam: Present: clear to auscultation bilaterally - Cardiovascular Cardiovascular exam: Present: RRR - GI/Abdominal GI/Abdominal exam: Present: soft, other (No masses appreciated). Absent: tenderness - Extremities Exam Extremities exam: Absent: calf tenderness, edema - Neurological Exam Neurological exam: Present: alert, oriented X3 Speech: Present: normal Results - Labs CBC & BMP: 10/27/16 09:08 10/25/16 04:40 - Diagnostic Findings Procedure: CT Abdomen and Pelvis: image reviewed by me, report reviewed by me ( Mass noted of the right colon; no evidence of metastatic lesions appreciated) Quality Measures - VTE Contraindication to Pharmacological VTE Prophylaxis: Active Bleeding
[2016-10-27 11:30] LABS: Vitamin A, S 31.9 mcg/dL (32.5-78.0)
--- NOTE | 2016-10-27 15:17 | Pathology Report from [facility] ---
[facility] ACCESSION # : [id number] PATIENT NAME : Nahun Avina ORDERING DR : DARIN FLORES MD CLINICAL HX: BRR bleeding POST-OP DX: Colon mass ascending SPECIMEN INFO: Colon biopsies ascending GROSS DESCRIPTION: The specimen is received in formalin labeled with the patients name and consists of a 0.9 x 0.3 cm aggregate of almanzar tissue. Submitted in one cassette. 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 COLLECTED DATE: 10/26/2016 [facility] REPORT DATE: 10/27/2016 ELECTRONICALLY SIGNED BY: Anna Marino III, M.D. 10/27/2016 - 14:03:30 BETH
--- NOTE | 2016-10-27 16:20 | EKG Report ---
Stationary ECG Study [facility] Test Date: 10/27/2016 4:19 PM Pat Name: NAHUN CRUZ Department: Room: 434 Gender: F Shingle Weaver: : 1950 Requested by: Caitlin Dyer Order Number: [id number] Reading MD: NONI PHELPS Intervals [place] Rate: 91 P: 53 MT: 135 QRS: 28 QRSD: 86 T: 15 QT: 355 QTc: 404 Interpretive Statements SINUS RHYTHM WITH OCCASIONAL ECTOPIC PREMATURE COMPLEXES Electronically Signed On 10-27-16 17:05:35 CDT by NONI PHELPS [email or web address]
[2016-10-27] MEDS: CYANOCOBALAMIN 500 MCG TABLET PO SCH (16:46)
[2016-10-28 06:02] LABS: Hematocrit 29.6 VOL% (35.7-47.0); Hemoglobin 9.4 GM/DL (12.0-16.0)
[2016-10-28 06:22] LABS: PT Patient Result 11.1 SECS; Partial Thromboplastin Time 24.3 SECS (0-40)
[2016-10-28] MEDS: INSULIN REGULAR 100 UNIT/ML SUBCUT SCH ×4 (07:30→21:24)
[2016-10-28] MEDS: metFORMIN 500 MG TABLET PO SCH (08:58)
--- NOTE | 2016-10-28 10:21 | Hospitalist Progress Note ---
Assessment and Plan (1) Colonic mass Status: Acute Assessment and plan: Colonoscopy report reviewed. General surgery consult noted. Hemicolectomy scheduled for this morning for invasive adenocarcinoma of the colon noted in the cecum and ascending colon. Pathology report reveals: Invasive adenocarcinoma arising in a villous adenoma with ulceration and focal marked dysplasia. Current Visit: Yes (2) Symptomatic anemia Status: Acute Assessment and plan: Patient was transfused 2 units of packed red blood cells. Hemoglobin has been stable at 8.6 Acute blood loss anemia secondary to colon mass. Scheduled for hemicolectomy this morning. Current Visit: Yes (3) Iron deficiency anemia Status: Acute Current Visit: Yes Qualifiers: Iron deficiency anemia type: other iron deficiency Qualified Code(s): D50.8 - Other iron deficiency anemias (4) HTN (hypertension) Status: Chronic Current Visit: Yes Qualifiers: Hypertension type: essential hypertension Qualified Code(s): I10 - Essential (primary) hypertension (5) Diabetes mellitus Status: Chronic Current Visit: Yes Qualifiers: Diabetes mellitus type: type 2 Hospitalist: Subjective Interval history: Patient seen and examined. No acute events overnight. Case discussed with nursing staff. Labs reviewed. Awaiting surgery this morning. All questions were answered. Her family was at the bedside. Exam - Constitutional Vitals: Period Temp Pulse Resp BP Sys/Thompson Pulse Ox Last 24 Hr 97.0 F-98.8 F 72-96 18-20 137-166/61-72 95-99 Exam: Constitutional System: No distress. No tremulousness. Head: Normocephalic, atraumatic. Ears, Nose and Throat System: No pain or tenderness. No epistaxis or discharge Eyes System: Pupils equal, round, and reactive. Extraocular muscles intact. Neck: Supple, without adenopathy, No jugular venous distention. No thyromegaly, neck mass, or prior surgery apparent. Respiratory System: Chest clear to auscultation. Cardiovascular System: Heart with regular rate and rhythm. No murmur. GI System: Abdomen soft, nontender. Normo active bowel sounds present. Musculoskeletal System: limbs with no pedal edema. Full distal pulses. Normal capillary refill. Neurological System: No discernable sensory deficit. No aphasia Psychiatric System: Conversation is rational Results - Labs CBC & BMP: 10/28/16 03:49 10/25/16 04:40 Lab Results: I have reviewed the past 24 hour labs Quality Measures - VTE Contraindication to Pharmacological VTE Prophylaxis: Active Bleeding
--- NOTE | 2016-10-28 12:22 | Anesthesia Post-Op ---
Anesthesia Post OP - Post Ansesthetic Evaluation Patient seen in post op: Yes Resp: within normal limits CV: within normal limits Mental: within normal limits Temp: within normal limits [id number]: within normal limits Nausea and Vomiting: within normal limits Pain: within normal limits
[2016-10-28] MEDS ORDERED: SEVOFLURANE 1 UNIT/15 MINUTE INH ONE (12:24)
[2016-10-28] MEDS ORDERED: MIDAZOLAM 2 MG/2 ML VIAL ONE (12:25)
[2016-10-28] MEDS ORDERED: fentaNYL 100 MCG/2 ML VIAL ONE (12:25)
[2016-10-28] MEDS ORDERED: ACETAMINOPHEN 1,000 MG/100 ML VIAL IV ONE (12:25)
[2016-10-28] MEDS ORDERED: LACTATED RINGERS 1,000 ML IV ONE (12:25)
[2016-10-28 12:28] LABS: Apearance,Urine CLEAR (Clear); Bilirubin,Urine Negative (Negative); Blood, Urine Negative (Negative); Glucose,Urine (UA) Negative (Negative); Ketones,Urine Negative (Negative); Mucus,Urine Occasional /LPF (Occasional); Nitrite,Urine Negative (Negative); Protein,Urine Negative; RBC,Urine 1 /HPF (0-4); Urine Color Yellow (Yellow); Urine Specific Gravity 1.014 (1.001-1.035); Urine Urobilinogen < 2.0 EU/DL (0.2-1.0); WBC,Urine <1 /HPF (0-6)
--- NOTE | 2016-10-28 13:16 | Operative Note ---
Date of procedure: 10/28/16 Pre-op diagnosis: Colon cancer Post-op diagnosis: same (Colon cancer, distended gallbladder with some edema and a stone impacted at the neck) Procedure: Procedure performed: #1 right hemicolectomy with ileocolic anastomosis #2 small bowel resection #3 cholecystectomy Procedure in detail: After informed consent was obtained patient was taken operating suite lies upon the operating table. After general anesthesia was induced abdomen was prepped and draped in usual sterile fashion. After procedural pause midline laparotomy incision was made and dissection carried down through skin and soft tissue. Fascia was opened and the abdominal cavity was entered. As I began to examine the right abdomen immediately encountered the very distended and tense gallbladder. There was some gallbladder wall edema. A stone was appreciated it appeared impacted at the neck of the gallbladder. The right colon was examined and there was a mass at the cecum/ descending colon. There was some omentum adherent to the mass. The omentum divided leaving a portion still attached to the mass. There is a significant desmoplastic reaction versus tumor invasion full-thickness and is a loop of terminal ileum was intimately adherent to the mass. En bloc resection performed leaving that loop of ileum attached to the mass and dividing it approximately 5 cm proximal to its attachment using a JEFFY stapling device with a blue load. The right colon was mobilized along the white line of Toldt and the hepatic flexure release. The duodenum and right ureter were identified and preserved. Open the lesser sac and divided the omentum off of the proximal transverse colon. Then identified the middle colic vessels and transected the transverse colon just to the right of middle colic vessels. The mesentery supplying the terminal ileum and right colon was divided using JEFFY stapling device with vascular loads. The right colon and its attached small bowel was passed off the field and sent to pathology. Next the gallbladder was dissected off of the gallbladder fossa from a top down approach using cautery. Is continued down until the triangle of Beth was identified and I dissected the cystic duct and cystic artery ensuring that these were the only 2 structures entering the gallbladder. The cystic artery branched in the anterior and posterior branches and each were triple clipped and transected high along the gallbladder wall. C the main cystic artery appear to be coming off a branch of the right hepatic or replaced right hepatic artery and this was left preserved and unharmed. The only thing still attached to the gallbladder was the cystic duct and it was ligated with 3-0 Vicryl suture and clips and divided. There is a large stone impacting the neck of the gallbladder at the cystic duct. The gallbladder was removed and passed off the field and sent to pathology. Next I examined the transected bowel and the portion of small bowel appeared slightly dusky probably some venous congestion and I elected to remove short piece of small bowel back to an area with better blood supply. This was done using a JEFFY stapling device with a blue load. Next a side to side functional end-to- end anastomosis was constructed using a JEFFY stapling device with a blue load. The resultant enterotomy and colotomy were closed using a TA stapling device. Mesenteric defect was closed with 3-0 running Vicryl. The anastomosis examined and appeared intact and fully patent with good hemostasis. It appeared healthy and viable with no areas of duskiness. The abdomen was then thoroughly irrigated and suctioned there was excellent hemostasis. NG tube was confirmed in the stomach. There were no liver lesions palpable. Remainder of the colon and small bowel appeared normal. The irrigant remained clear was all suctioned and the midline fascia closed with #1 Running Loop PDS. Incision was closed with cristina. Sterile dressings applied. The patient was explained taken recovery room in stable condition. All lap and needle counts correct at the end of the case. Anesthesia: GETA Surgeon / Physician: Romario Hall Estimated blood loss: other (Less than 25 cc) Specimens: other (Right colon, small bowel, gallbladder) Condition: stable Disposition: PACU Results - Labs CBC & BMP: 10/28/16 03:49 10/25/16 04:40 Discharge Plan - Discharge Medications No Action Aspirin 81 mg PO DAILY Magnesium Oxide [Magox 400] 400 mg PO DAILY Ferrous Sulfate 325 mg PO TID Albuterol Sulfate [Proair HFA] 2 puff INH Q4HR PRN PRN Reason: Shortness Of Breath/Wheezing Quinapril HCl 40 mg PO DAILY Tizanidine HCl 2 mg PO BID PRN PRN Reason: Muscle Pain Atorvastatin Calcium 20 mg PO DAILY Potassium Chloride 20 meq PO DAILY Metformin HCl 2,000 mg PO DAILY Travoprost 0.004% Oph Soln [Travatan Z] 1 drop MISC DAILY Fluorometholone 0.1% Oph Susp [FML 0.1% Oph Susp] 1 drop BOTH EYES BID Loratadine 10 mg PO DAILY Ergocalciferol (Vitamin D2) [Vitamin D2] 50,000 unit PO Q7DAY hydroCHLOROthiazide [Hydrochlorothiazide] 25 mg PO DAILY - Follow Up or Referral - Forms/Instructions
[2016-10-28] MEDS ORDERED: MORPHINE 2 MG/1 ML SYRINGE IV PRN (14:38)
[2016-10-28] MEDS: LORATADINE 10 MG TABLET PO SCH (15:02)
[2016-10-28] MEDS: IRON (CARBONYL) 45 MG TABLET PO SCH ×2 (15:02→21:24)
[2016-10-28] MEDS: hydroCHLOROthiazide 25 MG TABLET PO SCH (15:03)
[2016-10-28] MEDS: POTASSIUM CHLORIDE 20 MEQ TABLET PO SCH (15:03)
[2016-10-28] MEDS: ATORVASTATIN 20 MG TABLET PO SCH (15:03)
[2016-10-28] MEDS: MAGNESIUM OXIDE 400 MG TABLET PO SCH (15:03)
[2016-10-28] MEDS: CYANOCOBALAMIN 500 MCG TABLET PO SCH (15:03)
[2016-10-28] MEDS: LACTATED RINGERS 1,000 ML IV SCH (15:24)
[2016-10-28] MEDS: PANTOPRAZOLE 40 MG VIAL IV SCH (15:25)
[2016-10-28] MEDS: FLUOROMETHOLONE 0.1% OPH SUSP 5 ML BOTTLE BOTH EYES SCH ×2 (15:26→22:38)
[2016-10-28] MEDS: TRAVOPROST 0.004% OPH SOLN 2.5 ML BOTTLE BOTH EYES SCH (15:27)
[2016-10-28] MEDS ORDERED: NALOXONE 0.4 MG/ML VIAL IV PRN (18:37)
[2016-10-28] MEDS: HYDROmorphone PCA 30 MG/30 ML SYRINGE IV SCH (18:59)
[2016-10-28] MEDS: KETOROLAC 15 MG/1 ML VIAL IV SCH (19:02)
[2016-10-28] MEDS: ALVIMOPAN 12 MG CAPSULE PO SCH (21:24)
[2016-10-29] MEDS: KETOROLAC 15 MG/1 ML VIAL IV SCH ×4 (01:37→18:49)
[2016-10-29] MEDS: LACTATED RINGERS 1,000 ML IV SCH ×5 (07:36→23:46)
[2016-10-29 08:43] LABS: Calcium 8.2 MG/DL (8.5-10.1); Osmolality,Calculated 275.8 MOS/KG (273-304); Potassium 3.9 MMOL/L (3.5-5.1)
[2016-10-29] MEDS: INSULIN REGULAR 100 UNIT/ML SUBCUT SCH ×4 (08:52→21:47)
[2016-10-29] MEDS: LORATADINE 10 MG TABLET PO SCH (09:31)
[2016-10-29] MEDS: ALVIMOPAN 12 MG CAPSULE PO SCH ×2 (09:31→21:46)
[2016-10-29] MEDS: FLUOROMETHOLONE 0.1% OPH SUSP 5 ML BOTTLE BOTH EYES SCH ×2 (09:31→21:47)
[2016-10-29] MEDS: metFORMIN 500 MG TABLET PO SCH (09:31)
[2016-10-29] MEDS: TRAVOPROST 0.004% OPH SOLN 2.5 ML BOTTLE BOTH EYES SCH (09:31)
[2016-10-29] MEDS: IRON (CARBONYL) 45 MG TABLET PO SCH ×3 (09:31→21:46)
[2016-10-29] MEDS: POTASSIUM CHLORIDE 20 MEQ TABLET PO SCH (09:32)
[2016-10-29] MEDS: ATORVASTATIN 20 MG TABLET PO SCH (09:32)
[2016-10-29] MEDS: hydroCHLOROthiazide 25 MG TABLET PO SCH (09:32)
[2016-10-29] MEDS: MAGNESIUM OXIDE 400 MG TABLET PO SCH (09:32)
[2016-10-29] MEDS: CYANOCOBALAMIN 500 MCG TABLET PO SCH (09:32)
[2016-10-29] MEDS: PANTOPRAZOLE 40 MG VIAL IV SCH (09:35)
[2016-10-29 09:48] LABS: Basophils % 0.2 % (0.0-0.8); Hematocrit 28.6 VOL% (35.7-47.0); Hemoglobin 9.1 GM/DL (12.0-16.0); Immature Granulocytes % 0.6 %; Lymphocytes # 0.7 10*3/uL (1.4-4.0); Mean Corpuscular HGB Conc 31.8 GM/DL (32-36); Mean Corpuscular Hemoglobin 24 PG (27-34); Mean Corpuscular Volume 74.7 FL (87-102); Mean Platelet Volume 10.4 FL (9.6-12.0); Monocytes # 1.4 10*3/uL (0.11-0.8); Monocytes % 7.9 % (1.7-12.7); Neutrophils # 15.6 10*3/uL (1.4-7.4); Neutrophils % 87.3 % (38.7-73.9); Platelet Count 391 T/CUMM (130-400); Red Blood Count 3.83 MC/CUMM (3.8-5.5); Red Cell Distribution Width 21.2 % (9.3-17.3); White Blood Count 17.8 T/CUMM (4-12)
--- NOTE | 2016-10-29 09:58 | Hospitalist Progress Note ---
Assessment and Plan (1) Colonic mass Status: Acute Assessment and plan: Colonoscopy report reviewed. General surgery consult noted. Hemicolectomy scheduled for this morning for invasive adenocarcinoma of the colon noted in the cecum and ascending colon. Pathology report reveals: Invasive adenocarcinoma arising in a villous adenoma with ulceration and focal marked dysplasia. Postop day 1 status post hemicolectomy. Routine postop care. Surgery following. Current Visit: Yes (2) Symptomatic anemia Status: Resolved Assessment and plan: Patient was transfused 2 units of packed red blood cells. Hemoglobin has been stable at 9.1 Acute blood loss anemia secondary to colon mass. Current Visit: Yes (3) Iron deficiency anemia Status: Acute Current Visit: Yes Qualifiers: Iron deficiency anemia type: other iron deficiency Qualified Code(s): D50.8 - Other iron deficiency anemias (4) HTN (hypertension) Status: Chronic Current Visit: Yes Qualifiers: Hypertension type: essential hypertension Qualified Code(s): I10 - Essential (primary) hypertension (5) Diabetes mellitus Status: Chronic Current Visit: Yes Qualifiers: Diabetes mellitus type: type 2 Hospitalist: Subjective Interval history: Patient seen and examined. No acute events overnight. Case discussed with nursing staff. Labs reviewed. NG tube and Esparza catheter in place. Minimal NG tube output overnight. The patient denies any complaints. Her family is at the bedside. Exam - Constitutional Vitals: Period Temp Pulse Resp BP Sys/Thompson Pulse Ox Last 24 Hr 97.0 F-98 F 64-94 12-20 110-170/61-79 90-100 Exam: Constitutional System: No distress. No tremulousness. Head: Normocephalic, atraumatic. Ears, Nose and Throat System: No pain or tenderness. No epistaxis or discharge. NG tube in place Eyes System: Pupils equal, round, and reactive. Extraocular muscles intact. Neck: Supple, without adenopathy, No jugular venous distention. No thyromegaly, neck mass, or prior surgery apparent. Respiratory System: Chest clear to auscultation. Cardiovascular System: Heart with regular rate and rhythm. No murmur. GI System: Abdomen soft, mildly tender at the surgical site. Abdominal binder in place. Abdominal wound dressing is clean, dry and intact. Hypoactive bowel sounds noted Musculoskeletal System: limbs with no pedal edema. Full distal pulses. Normal capillary refill. Neurological System: No discernable sensory deficit. No aphasia Psychiatric System: Conversation is rational Results - Labs CBC & BMP: 10/29/16 07:46 10/29/16 07:46 Lab Results: I have reviewed the past 24 hour labs Quality Measures - VTE Contraindication to Pharmacological VTE Prophylaxis: Active Bleeding
[2016-10-29 10:13] LABS: Band Neutrophils 1 % (0-10); Hypochromasia 1+; Lymphocytes 1 % (20-55); Microcytosis 1+; Segmented Neutrophils 92 % (50-85); Total Cells Counted 100
[2016-10-29 10:14] LABS: Ovalocytes Few; Platelet Estimate Normal
--- NOTE | 2016-10-29 13:48 | Event Note ---
Doing well. Afebrile vital signs stable. Pain well controlled. 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 Overall she is doing pretty good. NG tube with minimal output but she denies any flatus. On exam her abdomen is soft non-distended appropriately tender but no bowel sounds appreciated. Labs reviewed. Overall she appears to be stable. We will continue current treatment. Await for bowel function returned.
[2016-10-29] MEDS: HYDROmorphone PCA 30 MG/30 ML SYRINGE IV SCH (18:48)
[2016-10-30] MEDS: KETOROLAC 15 MG/1 ML VIAL IV SCH ×4 (00:55→18:39)
[2016-10-30 04:42] LABS: Basophils % 0.2 % (0.0-0.8); Eosinophils % 0.2 % (0.00-10.9); Hematocrit 25.1 VOL% (35.7-47.0); Hemoglobin 7.9 GM/DL (12.0-16.0); Immature Granulocytes % 0.6 %; Lymphocytes # 0.6 10*3/uL (1.4-4.0); Lymphocytes % 3.7 % (21.3-54.2); Mean Corpuscular HGB Conc 31.5 GM/DL (32-36); Mean Corpuscular Hemoglobin 24 PG (27-34); Mean Corpuscular Volume 75.6 FL (87-102); Mean Platelet Volume 10.6 FL (9.6-12.0); Monocytes # 1.4 10*3/uL (0.11-0.8); Monocytes % 8.8 % (1.7-12.7); Neutrophils # 14.1 10*3/uL (1.4-7.4); Neutrophils % 86.5 % (38.7-73.9); Platelet Count 349 T/CUMM (130-400); Red Blood Count 3.32 MC/CUMM (3.8-5.5); Red Cell Distribution Width 21.3 % (9.3-17.3); White Blood Count 16.3 T/CUMM (4-12)
[2016-10-30 05:17] LABS: Bilirubin,Total 1.2 MG/DL (0.2-1.0); Calcium 8.3 MG/DL (8.5-10.1); Osmolality,Calculated 278.7 MOS/KG (273-304); Potassium 4.1 MMOL/L (3.5-5.1); Total Protein 4.9 G/DL (6.4-8.3)
[2016-10-30 05:53] LABS: Hypochromasia 1+; Lymphocytes 8 % (20-55); Microcytosis 1+; Nucleated Red Blood Cells 1 (0-5); Segmented Neutrophils 88 % (50-85); Total Cells Counted 100
[2016-10-30 05:54] LABS: Ovalocytes Slight; Spherocytes Few
[2016-10-30] MEDS: LACTATED RINGERS 1,000 ML IV SCH ×3 (07:48→17:01)
[2016-10-30] MEDS: INSULIN REGULAR 100 UNIT/ML SUBCUT SCH ×4 (08:09→20:43)
[2016-10-30] MEDS: LORATADINE 10 MG TABLET PO SCH (08:10)
[2016-10-30] MEDS: hydroCHLOROthiazide 25 MG TABLET PO SCH (08:10)
[2016-10-30] MEDS: IRON (CARBONYL) 45 MG TABLET PO SCH ×3 (08:10→20:14)
[2016-10-30] MEDS: metFORMIN 500 MG TABLET PO SCH (08:10)
[2016-10-30] MEDS: CYANOCOBALAMIN 500 MCG TABLET PO SCH (08:11)
[2016-10-30] MEDS: MAGNESIUM OXIDE 400 MG TABLET PO SCH (08:11)
[2016-10-30] MEDS: ATORVASTATIN 20 MG TABLET PO SCH (08:11)
[2016-10-30] MEDS: POTASSIUM CHLORIDE 20 MEQ TABLET PO SCH (08:11)
[2016-10-30] MEDS ORDERED: ERGOCALCIFEROL 50,000 UNIT CAPSULE PO SCH (09:00)
[2016-10-30] MEDS: PANTOPRAZOLE 40 MG VIAL IV SCH (09:29)
[2016-10-30] MEDS: FLUOROMETHOLONE 0.1% OPH SUSP 5 ML BOTTLE BOTH EYES SCH ×2 (09:29→20:45)
[2016-10-30] MEDS: ALVIMOPAN 12 MG CAPSULE PO SCH ×2 (09:29→20:43)
[2016-10-30] MEDS: TRAVOPROST 0.004% OPH SOLN 2.5 ML BOTTLE BOTH EYES SCH (09:29)
--- NOTE | 2016-10-30 10:26 | Hospitalist Progress Note ---
Assessment and Plan (1) S/P right hemicolectomy Status: Acute Assessment and plan: The patient is postoperative day #2 from hemicolectomy and cholecystectomy. The patient is awaiting return of bowel function. Transfusion is underway and pain is well controlled. Electrolytes were evaluated and are within normal limits. Current Visit: Yes (2) S/P cholecystectomy Status: Acute Current Visit: Yes (3) Acute blood loss anemia Status: Acute Current Visit: Yes (4) HTN (hypertension) Status: Chronic Current Visit: Yes Qualifiers: Hypertension type: essential hypertension Qualified Code(s): I10 - Essential (primary) hypertension Hospitalist: Subjective Interval history: The patient is postoperative day #2 hemicolectomy. The patient is resting quietly in the room. I updated her family consisting of niece in the room. The patient is stable and slowly improving on the expected postoperative course. The patient is having red blood cell transfusion at present. The patient had no new symptoms to report. Exam - Constitutional Vitals: Period Temp Pulse Resp BP Sys/Thompson Pulse Ox Last 24 Hr 97.0 F-98.3 F 87-102 16-20 128-161/60-66 92-98 General appearance: no acute distress - Respiratory Respiratory exam: Present: clear to auscultation bilaterally - Cardiovascular Cardiovascular exam: Present: regular rate and rhythm - GI/Abdominal GI/Abdominal exam: Present: hypoactive bowel sounds - Extremities Exam Extremities exam: Present: normal inspection Results - Labs CBC & BMP: 10/30/16 02:45 10/30/16 02:45 Lab Results: I have reviewed the past 24 hour labs Quality Measures - VTE Contraindication to Pharmacological VTE Prophylaxis: Active Bleeding
[2016-10-30] MEDS: cefOXitin 1,000 MG in SODIUM CHLORIDE 0.9% 100 ML IV SCH ×2 (12:34→19:34)
--- NOTE | 2016-10-30 13:38 | Event Note ---
Afebrile vital signs stable. Patient is doing well. She has no complaints. Her pain is well controlled. NG tube has minimal output. Her abdomen is soft appropriately tender nondistended. Incision looks good. She has good bowel sounds today. She is currently getting blood. White blood cell count elevated but improved from yesterday. Will add Mefoxin 1 g every 8 hours. Recheck CBC tomorrow. DC her NG tube continue n.p.o. for now.
[2016-10-30] MEDS: diphenhydrAMINE 50 MG/1 ML VIAL IV PRN (13:54)
[2016-10-30] MEDS ORDERED: DEXTROSE 50% 25 GM/50 ML SYRINGE IV ONE (16:20)
[2016-10-30] MEDS: HYDROmorphone PCA 30 MG/30 ML SYRINGE IV SCH (18:39)
[2016-10-31] MEDS: KETOROLAC 15 MG/1 ML VIAL IV SCH ×4 (00:18→20:31)
[2016-10-31] MEDS: LACTATED RINGERS 1,000 ML IV SCH ×3 (00:22→09:17)
[2016-10-31] MEDS: diphenhydrAMINE 50 MG/1 ML VIAL IV PRN (00:36)
[2016-10-31 03:37] LABS: Basophils % 0.2 % (0.0-0.8); Eosinophils # 0.1 10*3/uL (0.0-0.87); Eosinophils % 0.8 % (0.00-10.9); Hematocrit 31.3 VOL% (35.7-47.0); Immature Granulocytes % 0.5 %; Immature Granulocytes Absolute 0.07 #; Lymphocytes # 0.4 10*3/uL (1.4-4.0); Mean Corpuscular HGB Conc 32.3 GM/DL (32-36); Mean Corpuscular Hemoglobin 25 PG (27-34); Mean Corpuscular Volume 76.3 FL (87-102); Monocytes # 0.8 10*3/uL (0.11-0.8); Monocytes % 5.7 % (1.7-12.7); Neutrophils # 12.4 10*3/uL (1.4-7.4); Neutrophils % 89.8 % (38.7-73.9); Platelet Count 271 T/CUMM (130-400); Red Cell Distribution Width 20.8 % (9.3-17.3); White Blood Count 13.8 T/CUMM (4-12)
[2016-10-31 03:58] LABS: Calcium 8.3 MG/DL (8.5-10.1); Magnesium 1.7 MG/DL (1.8-2.4); Osmolality,Calculated 279.5 MOS/KG (273-304); Potassium 3.7 MMOL/L (3.5-5.1)
[2016-10-31 04:04] LABS: Hemoglobin 10.1 GM/DL (12.0-16.0)
[2016-10-31] MEDS: cefOXitin 1,000 MG in SODIUM CHLORIDE 0.9% 100 ML IV SCH ×3 (04:52→20:34)
[2016-10-31 06:27] LABS: Band Neutrophils 1 % (0-10); Eosinophils 2 % (0-10); Lymphocytes 2 % (20-55); Platelet Estimate Normal; Segmented Neutrophils 92 % (50-85); Total Cells Counted 100
[2016-10-31] MEDS: INSULIN REGULAR 100 UNIT/ML SUBCUT SCH ×4 (08:07→20:40)
[2016-10-31] MEDS: ALVIMOPAN 12 MG CAPSULE PO SCH ×2 (09:16→20:29)
[2016-10-31] MEDS: PANTOPRAZOLE 40 MG VIAL IV SCH (09:16)
[2016-10-31] MEDS: FLUOROMETHOLONE 0.1% OPH SUSP 5 ML BOTTLE BOTH EYES SCH ×2 (09:17→20:36)
[2016-10-31] MEDS: TRAVOPROST 0.004% OPH SOLN 2.5 ML BOTTLE BOTH EYES SCH (09:17)
[2016-10-31] MEDS: MAGNESIUM OXIDE 400 MG TABLET PO SCH (09:18)
[2016-10-31] MEDS: POTASSIUM CHLORIDE 20 MEQ TABLET PO SCH (09:18)
[2016-10-31] MEDS: ATORVASTATIN 20 MG TABLET PO SCH (09:18)
[2016-10-31] MEDS: CYANOCOBALAMIN 500 MCG TABLET PO SCH (09:18)
[2016-10-31] MEDS: hydroCHLOROthiazide 25 MG TABLET PO SCH (09:18)
[2016-10-31] MEDS: LORATADINE 10 MG TABLET PO SCH (09:18)
[2016-10-31] MEDS: metFORMIN 500 MG TABLET PO SCH (09:18)
[2016-10-31] MEDS: IRON (CARBONYL) 45 MG TABLET PO SCH ×3 (09:18→20:29)
[2016-10-31] MEDS ORDERED: HYDROmorphone 2 MG/1 ML VIAL IV PRN (09:40)
--- NOTE | 2016-10-31 11:13 | Hospitalist Progress Note ---
Assessment and Plan (1) Colon cancer Status: Acute Assessment and plan: 1)ABLA- transfused yesterday, H&H stable. 2)colon cancer- may need to see heme onc prior to discharge- discuss with Dr Hall 3)S/P cholecystectomy and hemicolectomy- continue supportive care, encourage increased activity. consult PT. 4)delayed bladder emptying- I and O cath for now, carrillo out yesterday. 5)HTN- resume quinapril. creatinine normal. 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 She is eating ok. She has been up slowly to BR. Exam - Constitutional Vitals: Period Temp Pulse Resp BP Sys/Thompson Pulse Ox Last 24 Hr 96.3 F-98.8 F 78-95 16-20 130-160/63-72 93-97 General appearance: normal weight, no acute distress - Eye Eye exam: Present: EOMI. Absent: scleral icterus - Respiratory Respiratory exam: Present: clear to auscultation bilaterally - Cardiovascular Cardiovascular exam: Present: regular rate and rhythm - GI/Abdominal GI/Abdominal exam: Present: hypoactive bowel sounds, tenderness - Extremities Exam Extremities exam: Absent: edema - Neurological Exam Neurological exam: Present: alert, oriented X3 - Skin Skin exam: Present: warm, dry Results - Labs CBC & BMP: 10/31/16 02:20 10/31/16 02:20 Lab Results: I have reviewed the past 24 hour labs Quality Measures - VTE Contraindication to Pharmacological VTE Prophylaxis: Active Bleeding
--- NOTE | 2016-10-31 11:19 | Event Note ---
Afebrile vital signs stable. NG tube was removed yesterday and she has felt good with no nausea or vomiting. She has been ambulating. She did require in and out catheterization for urinary retention. Her abdomen is soft appropriately tender nondistended. She has good bowel sounds. She had a bowel movement and is having a lot of flatus. Her pain is well controlled. Incision looks good. Will advance to clear liquid diet. She will go slow. DC the SURFACE GRINDER TENDER and start [place] with Dilaudid as needed breakthrough. We will continue in and out catheterization is needed today. If she continues to have voiding difficulties will consult urology.
[2016-10-31] MEDS: QUINAPRIL 20 MG TABLET PO SCH (12:11)
[2016-11-01] MEDS: KETOROLAC 15 MG/1 ML VIAL IV SCH ×4 (00:52→18:37)
[2016-11-01] MEDS: ONDANSETRON 4 MG/2 ML VIAL IV PRN ×2 (01:49→16:51)
[2016-11-01 03:26] LABS: Basophils % 0.3 % (0.0-0.8); Eosinophils # 0.2 10*3/uL (0.0-0.87); Eosinophils % 1.5 % (0.00-10.9); Hematocrit 32.8 VOL% (35.7-47.0); Hemoglobin 10.5 GM/DL (12.0-16.0); Immature Granulocytes % 0.3 %; Immature Granulocytes Absolute 0.03 #; Lymphocytes # 0.6 10*3/uL (1.4-4.0); Lymphocytes % 5.9 % (21.3-54.2); Mean Corpuscular Hemoglobin 24 PG (27-34); Mean Corpuscular Volume 75.8 FL (87-102); Mean Platelet Volume 10.5 FL (9.6-12.0); Monocytes # 0.9 10*3/uL (0.11-0.8); Neutrophils # 8.1 10*3/uL (1.4-7.4); Platelet Count 359 T/CUMM (130-400); Red Blood Count 4.33 MC/CUMM (3.8-5.5); Red Cell Distribution Width 21.1 % (9.3-17.3); White Blood Count 9.7 T/CUMM (4-12)
[2016-11-01] MEDS: cefOXitin 1,000 MG in SODIUM CHLORIDE 0.9% 100 ML IV SCH ×3 (04:41→20:37)
[2016-11-01] MEDS: INSULIN REGULAR 100 UNIT/ML SUBCUT SCH ×4 (07:46→21:41)
[2016-11-01] MEDS: metFORMIN 500 MG TABLET PO SCH (08:08)
[2016-11-01] MEDS: CYANOCOBALAMIN 500 MCG TABLET PO SCH (09:41)
[2016-11-01] MEDS: IRON (CARBONYL) 45 MG TABLET PO SCH ×3 (09:41→22:00)
[2016-11-01] MEDS: QUINAPRIL 20 MG TABLET PO SCH (09:41)
[2016-11-01] MEDS: hydroCHLOROthiazide 25 MG TABLET PO SCH (09:42)
[2016-11-01] MEDS: tiZANidine 4 MG TABLET PO PRN (09:42)
[2016-11-01] MEDS: POTASSIUM CHLORIDE 20 MEQ TABLET PO SCH (09:42)
[2016-11-01] MEDS: LORATADINE 10 MG TABLET PO SCH (09:43)
[2016-11-01] MEDS: ALVIMOPAN 12 MG CAPSULE PO SCH ×2 (09:43→22:00)
[2016-11-01] MEDS: ATORVASTATIN 20 MG TABLET PO SCH (09:43)
[2016-11-01] MEDS: MAGNESIUM OXIDE 400 MG TABLET PO SCH (09:43)
[2016-11-01] MEDS: PANTOPRAZOLE 40 MG VIAL IV SCH (09:49)
[2016-11-01] MEDS: TRAVOPROST 0.004% OPH SOLN 2.5 ML BOTTLE BOTH EYES SCH (09:52)
[2016-11-01] MEDS: FLUOROMETHOLONE 0.1% OPH SUSP 5 ML BOTTLE BOTH EYES SCH ×2 (09:53→22:01)
--- NOTE | 2016-11-01 11:39 | Hospitalist Progress Note ---
Assessment and Plan (1) Colon cancer Status: Acute Assessment and plan: 1)ABLA- transfused. H&H stable. 2)colon cancer- may need to see heme onc prior to discharge- discuss with Dr Hall 3)S/P cholecystectomy and hemicolectomy- continue supportive care, encourage increased activity. consult PT. 4)urinary retention- I and O cath for now, carrillo out 2 days ago. If still having problems tomorrow, consult urology. 5)HTN- resumed quinapril without improvement in SBP. add hydralazine today. creatinine normal. Current Visit: Yes (2) Acute blood loss anemia Status: Acute Current Visit: Yes (3) S/P right hemicolectomy Status: Acute Current Visit: Yes (4) S/P cholecystectomy Status: Acute Current Visit: Yes Hospitalist: Subjective Interval history: Mrs Avina is doing well, getting up more, eating clears. No fever, no new pain. 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 Exam - Constitutional Vitals: Period Temp Pulse Resp BP Sys/Thompson Pulse Ox Last 24 Hr 97.3 F-99.4 F 85-98 16-18 162-188/72-85 94-100 General appearance: normal weight, no acute distress - Eye Eye exam: Present: EOMI. Absent: scleral icterus - Respiratory Respiratory exam: Present: clear to auscultation bilaterally - Cardiovascular Cardiovascular exam: Present: regular rate and rhythm - GI/Abdominal GI/Abdominal exam: Present: normal bowel sounds, soft. Absent: tenderness - Extremities Exam Extremities exam: Absent: edema Results - Labs CBC & BMP: 11/01/16 02:07 10/31/16 02:20 Lab Results: I have reviewed the past 24 hour labs Quality Measures - VTE Contraindication to Pharmacological VTE Prophylaxis: Active Bleeding
--- NOTE | 2016-11-01 12:29 | Event Note ---
Afebrile vital signs stable. Patient is having bowel movements. She is urinating well now without any difficulties. She tolerated her clear liquids with some mild nausea on one occasion. Her abdomen is soft mildly distended but she has bowel sounds present. She is appropriately tender. Will continue clear liquids for now and I have asked her to go slow. Antiemetics as needed for her nausea. Start Lovenox.
[2016-11-01] MEDS: hydrALAZINE 25 MG TABLET PO SCH ×3 (13:42→22:00)
[2016-11-01] MEDS: ENOXAPARIN 40 MG/0.4 ML SYRINGE SUBCUT SCH (13:46)
[2016-11-01] MEDS: PROMETHAZINE 25 MG/1 ML VIAL IM PRN (20:34)
[2016-11-02] MEDS: ONDANSETRON 4 MG/2 ML VIAL IV PRN ×2 (00:12→09:50)
[2016-11-02] MEDS: KETOROLAC 15 MG/1 ML VIAL IV SCH ×2 (01:16→06:41)
[2016-11-02] MEDS: cefOXitin 1,000 MG in SODIUM CHLORIDE 0.9% 100 ML IV SCH ×3 (04:10→21:25)
[2016-11-02] MEDS: PROMETHAZINE 25 MG/1 ML VIAL IM PRN (04:54)
[2016-11-02] MEDS: INSULIN REGULAR 100 UNIT/ML SUBCUT SCH ×4 (09:35→21:17)
[2016-11-02] MEDS: QUINAPRIL 20 MG TABLET PO SCH (09:39)
[2016-11-02] MEDS: IRON (CARBONYL) 45 MG TABLET PO SCH (09:39)
[2016-11-02] MEDS: CYANOCOBALAMIN 500 MCG TABLET PO SCH (09:39)
[2016-11-02] MEDS: LORATADINE 10 MG TABLET PO SCH (09:40)
[2016-11-02] MEDS: hydroCHLOROthiazide 25 MG TABLET PO SCH (09:40)
[2016-11-02] MEDS: ATORVASTATIN 20 MG TABLET PO SCH (09:40)
[2016-11-02] MEDS: tiZANidine 4 MG TABLET PO PRN (09:42)
[2016-11-02] MEDS: hydrALAZINE 25 MG TABLET PO SCH (09:42)
[2016-11-02] MEDS: ALVIMOPAN 12 MG CAPSULE PO SCH ×2 (09:42→21:28)
[2016-11-02] MEDS: POTASSIUM CHLORIDE 20 MEQ TABLET PO SCH (09:43)
[2016-11-02] MEDS: MAGNESIUM OXIDE 400 MG TABLET PO SCH (09:43)
[2016-11-02] MEDS: PANTOPRAZOLE 40 MG VIAL IV SCH (09:52)
[2016-11-02] MEDS: metFORMIN 500 MG TABLET PO SCH (09:59)
[2016-11-02] MEDS: FLUOROMETHOLONE 0.1% OPH SUSP 5 ML BOTTLE BOTH EYES SCH ×2 (10:12→23:20)
[2016-11-02] MEDS: TRAVOPROST 0.004% OPH SOLN 2.5 ML BOTTLE BOTH EYES SCH (10:13)
--- NOTE | 2016-11-02 10:26 | Event Note ---
Patient is a 66-year-old female postop day #5 status post right hemicolectomy and small bowel resection for colon cancer. She had progressed to clears and was having some mild associated nausea, but overnight she began to also experiencing vomiting. The patient currently reports she is vomiting the contents of her clear liquid diet. She is not having increased abdominal pain. Still minimal activity. She has had bowel movements daily including today she has had 2 1 reported watery and one reported normal size and caliber without melena or hematochezia. Vital signs stable; T-max 99 this a.m. Heart regular rate and rhythm Lungs clear to auscultation bilaterally Abdomen surgical incision is clean, dry and intact with cristina intact. Mild abdominal distention with tympany to percussion. Bowel sounds present in all 4 quadrants. Appropriate postop tenderness. Extremities: Calves are soft and nontender without pedal edema No new labs today Assessment and plan The patient is postop day #5. She is having difficulty tolerating her clear liquid diet and is now experiencing vomiting. She may be developing an ileus. We will start IV fluids, make her n.p.o., check labs and check an abdominal x- ray.
--- NOTE | 2016-11-02 10:53 | Hospitalist Progress Note ---
Assessment and Plan (1) Colon cancer Status: Acute Assessment and plan: 1)ABLA- transfused. H&H stable. 2)colon cancer- discussed with GANESH Bush-I will consult oncology. 3)S/P cholecystectomy and hemicolectomy- continue supportive care, encourage increased activity. consult PT. Worsening nausea- KUB with ileus- may need NGT or reglan. check BMP this morning and in am. 4)urinary retention- resolved. 5)HTN- change to IV meds since she is has NGT now. Current Visit: Yes (2) Acute blood loss anemia Status: Acute Current Visit: Yes (3) S/P right hemicolectomy Status: Acute Current Visit: Yes (4) S/P cholecystectomy Status: Acute Current Visit: Yes Hospitalist: Subjective Interval history: Mrs Avina has had nausea last night and this morning. She can't stand the smell of the clear liquid tray anymore and wants a saltine cracker. She had 2 Bms this morning. She has been getting up from bed occasionally. She says her pain is "OK". Exam - Constitutional Vitals: Period Temp Pulse Resp BP Sys/Thompson Pulse Ox Last 24 Hr 97.5 F-99.4 F 92-110 16-20 166-183/78-83 94-98 General appearance: normal weight, no acute distress - Eye Eye exam: Present: EOMI. Absent: scleral icterus - Respiratory Respiratory exam: Present: clear to auscultation bilaterally - Cardiovascular Cardiovascular exam: Present: regular rate and rhythm - GI/Abdominal GI/Abdominal exam: Present: normal bowel sounds, tenderness, soft - Extremities Exam Extremities exam: Absent: edema Results - Labs CBC & BMP: 11/01/16 02:07 10/31/16 02:20 Lab Results: I have reviewed the past 24 hour labs Quality Measures - VTE Contraindication to Pharmacological VTE Prophylaxis: Active Bleeding
[2016-11-02 11:23] LABS: Basophils % 0.3 % (0.0-0.8); Eosinophils # 0.1 10*3/uL (0.0-0.87); Eosinophils % 1.1 % (0.00-10.9); Hematocrit 35.3 VOL% (35.7-47.0); Hemoglobin 11.3 GM/DL (12.0-16.0); Immature Granulocytes % 0.3 %; Immature Granulocytes Absolute 0.02 #; Lymphocytes # 0.5 10*3/uL (1.4-4.0); Lymphocytes % 6.3 % (21.3-54.2); Mean Corpuscular Hemoglobin 24 PG (27-34); Mean Corpuscular Volume 76.1 FL (87-102); Mean Platelet Volume 9.8 FL (9.6-12.0); Monocytes # 0.8 10*3/uL (0.11-0.8); Monocytes % 11.5 % (1.7-12.7); Neutrophils # 5.9 10*3/uL (1.4-7.4); Neutrophils % 80.5 % (38.7-73.9); Platelet Count 438 T/CUMM (130-400); Red Blood Count 4.64 MC/CUMM (3.8-5.5); White Blood Count 7.3 T/CUMM (4-12)
--- NOTE | 2016-11-02 11:24 | XRay Report ---
EXAM: XR abdomen 1V CLINICAL INDICATION: Abdominal Pain nausea, vomiting COMPARISON: CT performed October 27, 2016 at 0641 hours Findings: Sagittal staple line midline. Multiple prominent air-filled loops of small bowel and stomach. Small amount of air dispersed throughout the descending colon. Prior cholecystectomy. Postoperative changes within the right lower quadrant. Visceral shadows are normal. No abnormal focal soft tissue masses or calcific densities identified in the abdomen or pelvis. IMPRESSION: Postoperative abdomen demonstrate small bowel ileus. Follow-up as clinically indicated PROCEDURE INTERPRETED AT [facility] DEPARTMENT OF RADIOLOGY Final Report Signed by: Toy Price
[2016-11-02 12:03] LABS: Albumin 2.1 G/DL (3.4-5.0); Bilirubin,Total 0.4 MG/DL (0.2-1.0); Calcium 8.6 MG/DL (8.5-10.1); Osmolality,Calculated 282.7 MOS/KG (273-304); Potassium 4.1 MMOL/L (3.5-5.1); Total Protein 5.5 G/DL (6.4-8.3)
[2016-11-02 12:08] LABS: Calcium 8.6 MG/DL (8.5-10.1); Osmolality,Calculated 282.7 MOS/KG (273-304); Potassium 4.1 MMOL/L (3.5-5.1)
[2016-11-02] MEDS: hydrALAZINE 20 MG/1 ML VIAL IV SCH ×2 (13:50→21:16)
[2016-11-02] MEDS: ENALAPRIL 2.5 MG/2 ML VIAL IV SCH ×2 (14:03→17:28)
[2016-11-02] MEDS: LACTATED RINGERS 1,000 ML IV SCH ×2 (14:09→23:33)
[2016-11-02] MEDS: ENOXAPARIN 40 MG/0.4 ML SYRINGE SUBCUT SCH (14:10)
[2016-11-02] MEDS: PHENOL 1.4% THROAT SPRAY 177 ML BOTTLE PO PRN (15:31)
[2016-11-03] MEDS: ENALAPRIL 2.5 MG/2 ML VIAL IV SCH ×4 (00:52→17:22)
[2016-11-03] MEDS: hydrALAZINE 20 MG/1 ML VIAL IV SCH ×4 (01:58→20:10)
[2016-11-03] MEDS: cefOXitin 1,000 MG in SODIUM CHLORIDE 0.9% 100 ML IV SCH ×3 (04:28→20:10)
[2016-11-03 06:41] LABS: Basophils % 0.5 % (0.0-0.8); Eosinophils # 0.3 10*3/uL (0.0-0.87); Eosinophils % 3.8 % (0.00-10.9); Hematocrit 30.7 VOL% (35.7-47.0); Hemoglobin 9.6 GM/DL (12.0-16.0); Immature Granulocytes % 0.5 %; Immature Granulocytes Absolute 0.04 #; Lymphocytes # 0.9 10*3/uL (1.4-4.0); Lymphocytes % 11.4 % (21.3-54.2); Mean Corpuscular HGB Conc 31.3 GM/DL (32-36); Mean Corpuscular Hemoglobin 24 PG (27-34); Mean Corpuscular Volume 76.8 FL (87-102); Mean Platelet Volume 9.8 FL (9.6-12.0); Monocytes # 1.1 10*3/uL (0.11-0.8); Monocytes % 14.3 % (1.7-12.7); Neutrophils # 5.3 10*3/uL (1.4-7.4); Neutrophils % 69.5 % (38.7-73.9); Platelet Count 385 T/CUMM (130-400); Red Cell Distribution Width 21.3 % (9.3-17.3); White Blood Count 7.6 T/CUMM (4-12)
[2016-11-03 07:08] LABS: Calcium 8.3 MG/DL (8.5-10.1); Potassium 4.1 MMOL/L (3.5-5.1)
[2016-11-03] MEDS: LACTATED RINGERS 1,000 ML IV SCH ×4 (07:49→15:41)
--- NOTE | 2016-11-03 08:20 | Oncology Consult Note ---
Assessment and Plan - Time spent with patient Time spent with patient: Greater than 30 minutes (1) Colon cancer Status: Acute Assessment and plan: Ms. Avina is slowly recovering from surgery. We are awaiting final pathology but it appears that there are no lymph nodes involved which is very favorable. I will follow-up with her tomorrow once final path is released later today. Upon discharge she will need a referral to a cancer center in [place] since she has [place] Medicaid. I relayed this to both daughters. They are debating whether they want to go to [place] or a center in [place]. I told him to decide and make case management aware so referral can be made at the time of discharge. Current Visit: Yes (2) HTN (hypertension) Status: Chronic Current Visit: Yes Qualifiers: Hypertension type: essential hypertension Qualified Code(s): I10 - Essential (primary) hypertension (3) Diabetes mellitus Status: Chronic Current Visit: Yes Qualifiers: Diabetes mellitus type: type 2 (4) Iron deficiency anemia Status: Acute Current Visit: Yes Qualifiers: Iron deficiency anemia type: other iron deficiency Qualified Code(s): D50.8 - Other iron deficiency anemias (5) S/P right hemicolectomy Status: Acute Current Visit: Yes History of Present Illness History of present illness: Ms. Avina is a 66 year old female who presented with weakness and severe anemia and was ultimately found to have a mass within the ascending colon. Biopsy confirmed invasive adenocarcinoma consistent with colon cancer. CT scan showed no evidence of distant metastatic disease. She underwent right hemicolectomy by Dr. Romario Hall on 10/28/2016. Pathology is currently pending at the time of this note but I spoke with him and they stated that they do not see any involvement of the lymph nodes but there still waiting some stains on the appendix to rule out any other involvement of the appendix. I explained to family that we will wait for final pathology to return before we know the final stage. At this point it appears to be either a stage I or stage II tumor. Home Medications Medication Instructions Recorded Confirmed Type Albuterol Sulfate [Proair HFA] 2 puff INH Q4HR PRN 10/23/16 10/23/16 History Aspirin 81 mg PO DAILY 10/23/16 10/23/16 History Atorvastatin Calcium 20 mg PO DAILY 10/23/16 10/23/16 History Ergocalciferol (Vitamin D2) 50,000 unit PO Q7DAY 10/23/16 10/23/16 History [Vitamin D2] Ferrous Sulfate 325 mg PO TID 10/23/16 10/23/16 History Fluorometholone 0.1% Oph Susp [FML 1 drop BOTH EYES BID 10/23/16 10/23/16 History 0.1% Oph Susp] Loratadine 10 mg PO DAILY 10/23/16 10/23/16 History Magnesium Oxide [Magox 400] 400 mg PO DAILY 10/23/16 10/23/16 History Metformin HCl 2,000 mg PO DAILY 10/23/16 10/23/16 History Potassium Chloride 20 meq PO DAILY 10/23/16 10/23/16 History Quinapril HCl 40 mg PO DAILY 10/23/16 10/23/16 History Tizanidine HCl 2 mg PO BID PRN 10/23/16 10/23/16 History Travoprost 0.004% Oph Soln 1 drop MISC DAILY 10/23/16 10/23/16 History [Travatan Z] hydroCHLOROthiazide 25 mg PO DAILY 10/23/16 10/23/16 History [Hydrochlorothiazide] Allergies Allergy/AdvReac Type Severity Reaction Status Date / Time celecoxib [From Celebrex] Allergy HIVES Verified 10/23/16 01:08 Medical,Surgical,& Family Hx - Medical History Cardio: History of: Hypertension Neurology: No history of: Seizures Endocrine: History of: Diabetes Mellitus (NIDDM) Hematology: History of: Anemia - Family History Family History: Reports;: Family Hypertension (mother) - Social History Smoking Status: Never smoker Frequency of Alcohol Use: None Type of Drug Use: None 12 point system: reviewed and no additional remarkable complaints except as stated - Constitutional Constitutional: Present: fatigue - Gastrointestinal Gastrointestinal: Present: abdominal pain, nausea Exam - Constitutional Vitals: Period Temp Pulse Resp BP Sys/Thompson Pulse Ox Last 24 Hr 97.3 F-98.6 F 89-114 18-20 113-138/58-70 93-99 General appearance: normal weight, no acute distress - Head Head Exam: Present: normocephalic, atraumatic - Eye Eye Exam: Present: EOMI. Absent: scleral icterus Pupils: Present: PERRL - ENT ENT exam: Present: normal exam, normal oropharynx - Neck Neck exam: Absent: lymphadenopathy, thyromegaly - Respiratory Respiratory exam: Present: CTAB. Absent: wheezes - Cardiovascular Cardiovascular exam: Present: RRR. Absent: JVD, systolic murmur - GI/Abdominal GI/Abdominal exam: Present: distended, hypoactive bowel sounds, tenderness, soft. Absent: ascites, guarding, mass - Neurological Exam Neurological exam: Present: alert, oriented X3 - Psychiatric Psychiatric exam: Present: normal affect, normal mood - Skin Skin exam: Present: warm, dry Results - Labs CBC & BMP: 11/03/16 06:14 11/03/16 06:14 Lab Results: I have reviewed the past 24 hour labs - Diagnostic Findings Procedure: CT Abdomen and Pelvis: report reviewed by me Quality Measures - VTE Contraindication to Pharmacological VTE Prophylaxis: Active Bleeding
[2016-11-03] MEDS: INSULIN REGULAR 100 UNIT/ML SUBCUT SCH ×4 (08:28→20:11)
[2016-11-03] MEDS: ALVIMOPAN 12 MG CAPSULE PO SCH ×2 (09:15→20:03)
[2016-11-03] MEDS: metFORMIN 500 MG TABLET PO SCH (09:16)
[2016-11-03] MEDS: TRAVOPROST 0.004% OPH SOLN 2.5 ML BOTTLE BOTH EYES SCH (09:37)
[2016-11-03] MEDS: FLUOROMETHOLONE 0.1% OPH SUSP 5 ML BOTTLE BOTH EYES SCH ×2 (09:37→20:12)
[2016-11-03] MEDS: PANTOPRAZOLE 40 MG VIAL IV SCH (09:37)
--- NOTE | 2016-11-03 11:46 | Event Note ---
The patient is a 66-year-old female postop day #6 status post right hemicolectomy and small bowel resection for colon cancer. She has developed postoperative ileus and required NG tube placement with nausea and vomiting. She feels improved after this. Still minimal activity. She reports continued bowel movement with almost normal caliber without melena or hematochezia. Vital signs stable; T-max 99 this a.m. Abdomen surgical incision is clean, dry and intact with cristina intact. Decreased abdominal distention. Hypoactive bowel sounds. No peritoneal signs. NG tube output with 500 cc recorded overnight; bile tinged Extremities: Calves are soft and nontender without pedal edema Labs reviewed Assessment and plan The patient is postop day #6 now with postoperative ileus. We will continue the NG tube today and monitor output. Consider removal tomorrow. H/H noted decreased - no signs of p/o bleeding. Defer transfusion decisions to primary team. Creatinine elevated and patient suspected volume depleted with recent n/ v. Will bolus 1L IVF then resume maintenance.
--- NOTE | 2016-11-03 11:57 | Hospitalist Progress Note ---
Assessment and Plan (1) Colon cancer Status: Acute Assessment and plan: 1)ABLA- transfused. H&H down from yesterday, no sign of bleeding. recheck in am. 2)colon cancer- discussed with GANESH Bush-I will consult oncology. 3)S/P cholecystectomy and hemicolectomy- continue supportive care, encourage increased activity. consult PT. 4)ileus- improved with NGT, belly softer. increase activity today. 5)HTN- change to IV meds since she is has NGT now. Current Visit: Yes (2) Acute blood loss anemia Status: Acute Current Visit: Yes (3) S/P right hemicolectomy Status: Acute Current Visit: Yes (4) S/P cholecystectomy Status: Acute Current Visit: Yes Hospitalist: Subjective Interval history: Mrs Avina is feeling better after NGT placed. She is going to get up and walk with PT today. Exam - Constitutional Vitals: Period Temp Pulse Resp BP Sys/Thompson Pulse Ox Last 24 Hr 97.3 F-98.6 F 89-114 18-20 113-138/58-70 93-99 General appearance: normal weight, no acute distress - Eye Eye exam: Present: EOMI. Absent: scleral icterus - Respiratory Respiratory exam: Present: clear to auscultation bilaterally - Cardiovascular Cardiovascular exam: Present: regular rate and rhythm - GI/Abdominal GI/Abdominal exam: Present: hypoactive bowel sounds, soft. Absent: distended - Extremities Exam Extremities exam: Absent: edema Results - Labs CBC & BMP: 11/03/16 06:14 11/03/16 06:14 Lab Results: I have reviewed the past 24 hour labs Quality Measures - VTE Contraindication to Pharmacological VTE Prophylaxis: Active Bleeding
[2016-11-03] MEDS ORDERED: DEXTROSE 50% 25 GM/50 ML SYRINGE IV ONE (12:00)
[2016-11-03] MEDS ORDERED: LACTATED RINGERS 1,000 ML IV SCH (12:00)
[2016-11-03] MEDS: PHENOL 1.4% THROAT SPRAY 177 ML BOTTLE PO PRN ×2 (12:05→18:34)
[2016-11-03] MEDS: ENOXAPARIN 40 MG/0.4 ML SYRINGE SUBCUT SCH (13:39)
[2016-11-03] MEDS ORDERED: DEXTROSE 50% 25 GM/50 ML SYRINGE IV PRN (16:48)
[2016-11-03] MEDS: DEXTROSE 5% NACL 0.45% 1,000 ML IV SCH (17:01)
--- NOTE | 2016-11-03 18:17 | Pathology Report from [facility] ---
[facility] [place] ACCESSION # : [id number] PATIENT NAME : Nahun Cruz ORDERING DR : Romario Hall MD CLINICAL HX: Colon mass POST-OP DX: Same SPECIMEN INFO: #1 Right colon and terminal ileum #2 Gallbladder GROSS DESCRIPTION: #1 Received in formalin labeled NAHUN CRUZ is an intact, partial colectomy consisting of a segment of cecum (31.0 x 3.0 cm) with attached terminal ileum (40.0 x 2.0 cm) and appendix (6.3 x 0.7 cm). Opening the colon reveals a circumferential fungating mass within the cecum (8.5 x 6.5 x 2.0 cm) that involves the ileocecal valve and invades through the bowel wall and attached to the adjacent terminal ileum. Grossly the mass comes to within 4.0 cm of the proximal margin, 22.0 cm of the distal margin, and 6.0 cm of the mesenteric margin. Received separately in the specimen container is a segment of small bowel (22.0 x 2.5 cm). Sections submitted 1A-Colon proximal margin, 1B -Distal margin, 1C-Mesenteric margin, 1D&1E-Tumor and adjacent terminal ileum, 1F-Additional tumor, 1G-Appendix, 1H&1I-Surgical margins separate segment of small bowel. Cassettes 1J and 1K lymph nodes added Tuesday10/29/2016.#2 Received in formalin labeled with the patients name NAHUN CRUZ and #2 is an intact gallbladder (13.5 x 6.5 x 4.5 cm). The serosa is smooth and erythematous. The wall averages 0.3 cm in thickness and the mucosal surface is smooth and pink-white. The lumen is filled with thick brown mucoid bile with two yellow-brown stones noted measuring up to 2.2 cm, one of which is impacted within the gallbladder duct. [employer] sections submitted in cassette #2. DIAGNOSIS FOR NAHUN CRUZ: #1 TERMINAL ILEUM AND COLON, PARTIAL ILEOCOLECTOMY (Intact, 71 x 3 cm): TYPE: Invasive mucinous adenocarcinoma. TUMOR SITE: Cecum, ileocecal valve, terminal ileum bowel wall. TUMOR SIZE: 8.5 x 6.5 cm. MACROSCOPIC TUMOR PERFORATION: Absent. HISTOLOGIC GRADE: Well- moderately differentiated. TUMOR EXTENSION: Invades into the pericolic fat without serosal involvement. Tumor involves terminal ileum by direct extension from ileocecal valve. No serosal involvement. MARGINS, PROXIMAL : Uninvolved by carcinoma, distance = 4 cm. DISTAL: Uninvolved by carcinoma, distance = 10 cm. MESENTERIC: Uninvolved by carcinoma, distance = 6 cm. TREATMENT EFFECT: No prior treatment. LYMPHOVASCULAR INVASION: Not identified. PERINEURAL INVASION: Not identified. TUMOR DEPOSITS: Not identified. LYMPH NODES: NUMBER EXAMINED: 13; NUMBER INVOLVED: 0 (0/13).AJCC PATHOLOGIC STAGE IIA ( [id number]).#2 GALLBLADDER, CHOLECYSTECTOMY: Chronic cholecystitis. Cholelithiasis with obstruction. Negative for tumor. COLLECTED DATE: 10/28/2016 [facility] REPORT DATE: 11/03/2016 ELECTRONICALLY SIGNED BY: Edith Mora M.D. 11/03/2016 - 14:30:43 MTDChristine
[2016-11-04] MEDS: ENALAPRIL 2.5 MG/2 ML VIAL IV SCH ×5 (00:13→23:43)
[2016-11-04] MEDS: DEXTROSE 5% NACL 0.45% 1,000 ML IV SCH ×3 (01:01→19:15)
[2016-11-04] MEDS: hydrALAZINE 20 MG/1 ML VIAL IV SCH ×4 (04:01→20:34)
[2016-11-04] MEDS: cefOXitin 1,000 MG in SODIUM CHLORIDE 0.9% 100 ML IV SCH ×3 (04:02→20:34)
[2016-11-04 05:48] LABS: Basophils % 0.3 % (0.0-0.8); Eosinophils # 0.3 10*3/uL (0.0-0.87); Eosinophils % 2.5 % (0.00-10.9); Hematocrit 30.4 VOL% (35.7-47.0); Hemoglobin 9.9 GM/DL (12.0-16.0); Immature Granulocytes % 0.5 %; Immature Granulocytes Absolute 0.05 #; Lymphocytes # 0.8 10*3/uL (1.4-4.0); Lymphocytes % 7.9 % (21.3-54.2); Mean Corpuscular HGB Conc 32.6 GM/DL (32-36); Mean Corpuscular Hemoglobin 25 PG (27-34); Mean Corpuscular Volume 75.4 FL (87-102); Mean Platelet Volume 10.3 FL (9.6-12.0); Monocytes % 10.2 % (1.7-12.7); Neutrophils # 7.9 10*3/uL (1.4-7.4); Neutrophils % 78.6 % (38.7-73.9); Platelet Count 438 T/CUMM (130-400); Red Blood Count 4.03 MC/CUMM (3.8-5.5); Red Cell Distribution Width 21.2 % (9.3-17.3); White Blood Count 10.1 T/CUMM (4-12)
[2016-11-04 06:19] LABS: Calcium 8.1 MG/DL (8.5-10.1); Osmolality,Calculated 281.1 MOS/KG (273-304); Potassium 3.2 MMOL/L (3.5-5.1)
--- NOTE | 2016-11-04 11:01 | Event Note ---
The patient is a 66-year-old female postop day #7 status post right hemicolectomy and small bowel resection for colon cancer. She has developed postoperative ileus and required NG tube placement due to nausea and vomiting. She feels improved after this. Still minimal activity although she did sit up in the chair yesterday. She reports continued bowel movement with almost normal caliber without melena or hematochezia. Vital signs stable; afebrile. Abdomen surgical incision is clean, dry and intact with cristina intact. Decreased abdominal distention. Hypoactive bowel sounds. No peritoneal signs. NG tube output with 200 cc since midnight; bile tinged Extremities: Calves are soft and nontender without pedal edema Labs reviewed. H/h stable. Renal function stable - baseline creatinine 1.0 on admission. Assessment and plan The patient is postop day #7 now with postoperative ileus - output still high. We will continue the NG tube today and monitor output. Consider removal tomorrow. H/H noted stable - no signs of p/o bleeding. Creatinine stable but still elevated; original creatine 1.0 - monitor. Hypokalemic - replete and repeat in am.
[2016-11-04] MEDS: metFORMIN 500 MG TABLET PO SCH (11:08)
[2016-11-04] MEDS: INSULIN REGULAR 100 UNIT/ML SUBCUT SCH ×4 (11:10→20:35)
[2016-11-04] MEDS: POTASSIUM CHLORIDE RIDER 10 MEQ in PREMIX 1 EACH IV SCH ×3 (11:15→16:46)
[2016-11-04] MEDS: PANTOPRAZOLE 40 MG VIAL IV SCH (11:19)
[2016-11-04] MEDS: ALVIMOPAN 12 MG CAPSULE PO SCH ×2 (11:20→20:34)
[2016-11-04] MEDS: TRAVOPROST 0.004% OPH SOLN 2.5 ML BOTTLE BOTH EYES SCH (11:21)
[2016-11-04] MEDS: FLUOROMETHOLONE 0.1% OPH SUSP 5 ML BOTTLE BOTH EYES SCH ×2 (11:21→20:34)
--- NOTE | 2016-11-04 11:42 | Hospitalist Progress Note ---
Assessment and Plan (1) Colon cancer Status: Acute Assessment and plan: 1)ABLA- transfused. H&H stable, no sign of bleeding. recheck in am. 2)colon cancer- path consistent with stage 2 colon cancer, Dr Pham has discussed with the patient and her family. She [place] need to follow up in [place]. 3)S/P cholecystectomy and hemicolectomy- continue supportive care, encourage increased activity. PT seeing her. 4)ileus- improved with NGT, belly softer. increase activity today. 5)HTN- controlled, monitor 6)hypokalemia- replace. Current Visit: Yes (2) Acute blood loss anemia Status: Acute Current Visit: Yes (3) S/P right hemicolectomy Status: Acute Current Visit: Yes (4) S/P cholecystectomy Status: Acute Current Visit: Yes Hospitalist: Subjective Interval history: Mrs Thompson looks good this morning. She was up to walk in the halls yesterday. She still has sig NG output, but does not have nausea and her pain is under control. Exam - Constitutional Vitals: Period Temp Pulse Resp BP Sys/Thompson Pulse Ox Last 24 Hr 98.2 F-98.7 F 86-97 16-20 131-159/60-71 94-97 General appearance: normal weight, no acute distress - Eye Eye exam: Present: EOMI. Absent: scleral icterus - Respiratory Respiratory exam: Present: clear to auscultation bilaterally - Cardiovascular Cardiovascular exam: Present: regular rate and rhythm - GI/Abdominal GI/Abdominal exam: Present: normal bowel sounds (softer each day since NGT placed. not tender) - Extremities Exam Extremities exam: Absent: edema Results - Labs CBC & BMP: 11/04/16 05:05 11/04/16 05:05 Lab Results: I have reviewed the past 24 hour labs Quality Measures - VTE Contraindication to Pharmacological VTE Prophylaxis: Active Bleeding
[2016-11-04] MEDS: ENOXAPARIN 40 MG/0.4 ML SYRINGE SUBCUT SCH (14:44)
[2016-11-05] MEDS: hydrALAZINE 20 MG/1 ML VIAL IV SCH ×4 (02:19→20:45)
[2016-11-05] MEDS: cefOXitin 1,000 MG in SODIUM CHLORIDE 0.9% 100 ML IV SCH ×3 (04:13→20:53)
[2016-11-05] MEDS: DEXTROSE 5% NACL 0.45% 1,000 ML IV SCH ×2 (04:15→18:07)
[2016-11-05] MEDS: ENALAPRIL 2.5 MG/2 ML VIAL IV SCH ×3 (05:16→18:07)
[2016-11-05 07:26] LABS: Alanine Aminotransferase < 9 U/L (13-56); Albumin 1.7 G/DL (3.4-5.0); Alkaline Phosphatase 65 U/L (45-117); Aspartate Amino Transferase 13 U/L (0-37); Total Protein 4.6 G/DL (6.4-8.3)
[2016-11-05 07:27] LABS: Blood Urea Nitrogen 5 MG/DL (7-18); Glucose 70 MG/DL (74-106); Magnesium 1.5 MG/DL (1.8-2.4); Osmolality,Calculated 275.3 MOS/KG (273-304); Potassium 2.9 MMOL/L (3.5-5.1); Sodium 141 MMOL/L (136-145)
[2016-11-05] MEDS ORDERED: MAGNESIUM SULF RIDER 4 GM in PREMIX 1 EACH IV ONE (07:52)
[2016-11-05] MEDS: INSULIN REGULAR 100 UNIT/ML SUBCUT SCH ×4 (08:32→20:46)
[2016-11-05] MEDS: PANTOPRAZOLE 40 MG VIAL IV SCH (09:14)
[2016-11-05] MEDS: POTASSIUM CHLORIDE RIDER 10 MEQ in PREMIX 1 EACH IV SCH ×6 (09:19→18:14)
[2016-11-05] MEDS: ALVIMOPAN 12 MG CAPSULE PO SCH ×2 (09:26→20:46)
[2016-11-05] MEDS: metFORMIN 500 MG TABLET PO SCH (09:26)
--- NOTE | 2016-11-05 10:00 | XRay Report ---
Exam: XR abdomen 2V Date: 11/05/2016 8:49 AM Indication: Abdominal ileus Comparison: 11/02/2016 Technical supine and erect imaging Findings: Nasogastric tube is present and has been placed with compared to previous examination with the distal pyloric antrum. Previous surgical clips present in the midline with prior cholecystectomy clips also present. Mild scarring present in the infrahilar region. Tiny effusion in the right base present. The liver spleen and renal shadows are mostly obscured. Decreased bowel gas present with some residual small bowel dilated in the left upper abdomen. No obvious pneumoperitoneum Impression: 1. Interval placement nasogastric tube 2. Status post surgical changes 3. Decreased gastric distention and small bowel distention PROCEDURE INTERPRETED AT [facility] DEPARTMENT OF RADIOLOGY Final Report Signed by: Dr. Derrell Levin
--- NOTE | 2016-11-05 10:03 | Event Note ---
Status post right hemicolectomy. Postop ileus. Afebrile vital signs stable. Patient is feeling well. She is having bowel movements. No significant abdominal pain. NG tube output remains higher than expected. On exam her abdomen is soft appropriately tender and nondistended. She has bowel sounds. Midline incision looks good. Plan: Abdominal x-ray showed the NG tube may be beyond the pylorus. Will retracted 10 cm. If the output falls and she continues to do well then she could probably have the tube removed and start clear liquids tomorrow. Replacing electrolytes as needed.
[2016-11-05] MEDS: FLUOROMETHOLONE 0.1% OPH SUSP 5 ML BOTTLE BOTH EYES SCH ×2 (11:14→20:45)
[2016-11-05] MEDS: TRAVOPROST 0.004% OPH SOLN 2.5 ML BOTTLE BOTH EYES SCH (11:14)
[2016-11-05] MEDS: ENOXAPARIN 40 MG/0.4 ML SYRINGE SUBCUT SCH (12:50)
--- NOTE | 2016-11-05 13:07 | Hospitalist Progress Note ---
Assessment and Plan (1) Colon cancer Status: Acute Assessment and plan: 1)ABLA- transfused. H&H stable, no sign of bleeding. recheck in am. 2)colon cancer- path consistent with stage 2 colon cancer, Dr Pham has discussed with the patient and her family. She [place] need to follow up [place]. 3)S/P cholecystectomy and hemicolectomy- continue supportive care, encourage increased activity. PT seeing her. 4)ileus- improved with NGT, belly softer. increase activity. NGT pulled back because it was past pylorus. May be able to get it out tomorrow. 5)HTN- controlled, monitor 6)hypokalemia and hypomagnesemia- replace again. recheck in am. Current Visit: Yes (2) Acute blood loss anemia Status: Acute Current Visit: Yes (3) S/P right hemicolectomy Status: Acute Current Visit: Yes (4) S/P cholecystectomy Status: Acute Current Visit: Yes Hospitalist: Subjective Interval history: Mrs Thompson is feeling good today. She denies pain. She walked in the [place] yesterday and plans to do it again tomorrow. Exam - Constitutional Vitals: Period Temp Pulse Resp BP Sys/Thompson Pulse Ox Last 24 Hr 97.9 F-98.8 F 57-104 16-20 130-150/60-67 92-100 General appearance: normal weight, no acute distress - Eye Eye exam: Present: EOMI. Absent: scleral icterus - Respiratory Respiratory exam: Present: clear to auscultation bilaterally - Cardiovascular Cardiovascular exam: Present: regular rate and rhythm - GI/Abdominal GI/Abdominal exam: Present: hypoactive bowel sounds, soft - Extremities Exam Extremities exam: Absent: edema Results - Labs CBC & BMP: 11/04/16 05:05 11/05/16 04:33 Lab Results: I have reviewed the past 24 hour labs Quality Measures - VTE Contraindication to Pharmacological VTE Prophylaxis: Active Bleeding
[2016-11-06] MEDS: ENALAPRIL 2.5 MG/2 ML VIAL IV SCH ×4 (01:08→18:07)
[2016-11-06] MEDS: hydrALAZINE 20 MG/1 ML VIAL IV SCH ×4 (01:39→20:08)
[2016-11-06] MEDS: cefOXitin 1,000 MG in SODIUM CHLORIDE 0.9% 100 ML IV SCH ×3 (05:17→20:21)
[2016-11-06 06:38] LABS: Calcium 8.2 MG/DL (8.5-10.1); Magnesium 2.1 MG/DL (1.8-2.4)
[2016-11-06 06:39] LABS: Osmolality,Calculated 276.4 MOS/KG (273-304); Potassium 3.5 MMOL/L (3.5-5.1)
[2016-11-06] MEDS: INSULIN REGULAR 100 UNIT/ML SUBCUT SCH ×4 (08:38→20:08)
[2016-11-06] MEDS: PANTOPRAZOLE 40 MG VIAL IV SCH (08:42)
[2016-11-06] MEDS: TRAVOPROST 0.004% OPH SOLN 2.5 ML BOTTLE BOTH EYES SCH (09:23)
[2016-11-06] MEDS: FLUOROMETHOLONE 0.1% OPH SUSP 5 ML BOTTLE BOTH EYES SCH ×2 (09:23→21:03)
[2016-11-06] MEDS: metFORMIN 500 MG TABLET PO SCH (10:42)
[2016-11-06] MEDS: ALVIMOPAN 12 MG CAPSULE PO SCH ×2 (10:43→20:09)
--- NOTE | 2016-11-06 11:27 | Event Note ---
She feels much better. She is having a bowel movement this morning. She has had no nausea or vomiting or abdominal pain. She has decreased nasogastric output. Her abdomen appears benign. We can probably get her nasogastric tube out today.
--- NOTE | 2016-11-06 11:42 | Hospitalist Progress Note ---
Assessment and Plan (1) Ileus following gastrointestinal surgery Status: Acute Assessment and plan: Management per surgery with NG tube. Continue to encourage ambulation and activity. Patient started having bowel movements last night. No flatus. Minimal NG tube output. 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 Postop hemicolectomy. Routine postop care. Surgery following. Current Visit: Yes (3) Symptomatic anemia Status: Resolved Assessment and plan: Patient was transfused 2 units of packed red blood cells. Hemoglobin has been stable at 9.1 Acute blood loss anemia secondary to colon mass. Current Visit: Yes (4) Iron deficiency anemia Status: Acute Current Visit: Yes Qualifiers: Iron deficiency anemia type: other iron deficiency Qualified Code(s): D50.8 - Other iron deficiency anemias (5) HTN (hypertension) Status: Chronic Current Visit: Yes Qualifiers: Hypertension type: essential hypertension Qualified Code(s): I10 - Essential (primary) hypertension (6) Diabetes mellitus Status: Chronic Current Visit: Yes Qualifiers: Diabetes mellitus type: type 2 Hospitalist: Subjective Interval history: Patient seen and examined. No acute events overnight. Case discussed with nursing staff. Labs reviewed. Daughter at the bedside. Minimal NG tube output overnight. Surgery notes reviewed. Exam - Constitutional Vitals: Period Temp Pulse Resp BP Sys/Thompson Pulse Ox Last 24 Hr 97.8 F-98.0 F 97-109 18-20 126-146/60-70 94-100 Exam: Constitutional System: No distress. No tremulousness. Head: Normocephalic, atraumatic. Ears, Nose and Throat System: No pain or tenderness. No epistaxis or discharge. NG tube in place Eyes System: Pupils equal, round, and reactive. Extraocular muscles intact. Neck: Supple, without adenopathy, No jugular venous distention. No thyromegaly, neck mass, or prior surgery apparent. Respiratory System: Chest clear to auscultation. Cardiovascular System: Heart with regular rate and rhythm. No murmur. GI System: Abdomen soft, mildly tender at the surgical site. Abdominal binder in place. Abdominal wound dressing is clean, dry and intact. Hypoactive bowel sounds noted Musculoskeletal System: limbs with no pedal edema. Full distal pulses. Normal capillary refill. Neurological System: No discernable sensory deficit. No aphasia Psychiatric System: Conversation is rational Results - Labs CBC & BMP: 11/04/16 05:05 11/06/16 05:31 Lab Results: I have reviewed the past 24 hour labs Quality Measures - VTE Contraindication to Pharmacological VTE Prophylaxis: Active Bleeding
[2016-11-06] MEDS: DEXTROSE 5% NACL 0.45% 1,000 ML IV SCH (13:40)
[2016-11-06] MEDS: ENOXAPARIN 40 MG/0.4 ML SYRINGE SUBCUT SCH (13:49)
[2016-11-07] MEDS: DEXTROSE 5% NACL 0.45% 1,000 ML IV SCH ×5 (00:21→18:38)
[2016-11-07] MEDS: ENALAPRIL 2.5 MG/2 ML VIAL IV SCH ×4 (00:37→17:56)
[2016-11-07] MEDS: hydrALAZINE 20 MG/1 ML VIAL IV SCH ×4 (02:07→21:44)
[2016-11-07] MEDS: cefOXitin 1,000 MG in SODIUM CHLORIDE 0.9% 100 ML IV SCH ×3 (03:54→20:09)
[2016-11-07] MEDS: ALVIMOPAN 12 MG CAPSULE PO SCH ×2 (08:11→20:08)
[2016-11-07] MEDS: INSULIN REGULAR 100 UNIT/ML SUBCUT SCH ×4 (08:11→21:38)
[2016-11-07] MEDS: metFORMIN 500 MG TABLET PO SCH (08:11)
[2016-11-07] MEDS: PANTOPRAZOLE 40 MG VIAL IV SCH (08:34)
[2016-11-07] MEDS: TRAVOPROST 0.004% OPH SOLN 2.5 ML BOTTLE BOTH EYES SCH (08:35)
[2016-11-07] MEDS: FLUOROMETHOLONE 0.1% OPH SUSP 5 ML BOTTLE BOTH EYES SCH ×2 (08:35→20:08)
--- NOTE | 2016-11-07 11:21 | Hospitalist Progress Note ---
Assessment and Plan (1) Ileus following gastrointestinal surgery Status: Acute Assessment and plan: Management per surgery with NG tube. Continue to encourage ambulation and activity. Patient started having bowel movements last night With flatus. Has tolerated NG tube clamped since yesterday Current Visit: Yes (2) Colonic mass Status: Acute Assessment and plan: Pathology report reveals: Invasive adenocarcinoma arising in a villous adenoma with ulceration and focal marked dysplasia. Postop hemicolectomy. Routine postop care. Surgery following. Current Visit: Yes (3) Symptomatic anemia Status: Resolved Assessment and plan: Patient was transfused 2 units of packed red blood cells. Hemoglobin has been stable at 9.1 Acute blood loss anemia secondary to colon mass. Current Visit: Yes (4) Iron deficiency anemia Status: Acute Current Visit: Yes Qualifiers: Iron deficiency anemia type: other iron deficiency Qualified Code(s): D50.8 - Other iron deficiency anemias (5) HTN (hypertension) Status: Chronic Current Visit: Yes Qualifiers: Hypertension type: essential hypertension Qualified Code(s): I10 - Essential (primary) hypertension (6) Diabetes mellitus Status: Chronic Current Visit: Yes Qualifiers: Diabetes mellitus type: type 2 Hospitalist: Subjective Interval history: Patient seen and examined. No acute events overnight. Case discussed with nursing staff. Labs reviewed. Ms. Avina continues to improve. She reports flatus and bowel movements in the last 12 hours. NG tube has been clamped. No abdominal distention or pain. We discussed increasing her physical activity. Will await for general surgery evaluation this morning to remove NG tube. Exam - Constitutional Vitals: Period Temp Pulse Resp BP Sys/Thompson Pulse Ox Last 24 Hr 97.7 F-98.9 F 90-108 18-103 108-154/60-72 94-100 Exam: Constitutional System: No distress. No tremulousness. Head: Normocephalic, atraumatic. Ears, Nose and Throat System: No pain or tenderness. No epistaxis or discharge. NG tube in place Eyes System: Pupils equal, round, and reactive. Extraocular muscles intact. Neck: Supple, without adenopathy, No jugular venous distention. No thyromegaly, neck mass, or prior surgery apparent. Respiratory System: Chest clear to auscultation. Cardiovascular System: Heart with regular rate and rhythm. No murmur. GI System: Abdomen soft, mildly tender at the surgical site. Abdominal binder in place. Abdominal wound dressing is clean, dry and intact. Bowel sounds noted Musculoskeletal System: limbs with no pedal edema. Full distal pulses. Normal capillary refill. Neurological System: No discernable sensory deficit. No aphasia Psychiatric System: Conversation is rational Results - Labs CBC & BMP: 11/04/16 05:05 11/06/16 05:31 Lab Results: I have reviewed the past 24 hour labs Quality Measures - VTE Contraindication to Pharmacological VTE Prophylaxis: Active Bleeding
--- NOTE | 2016-11-07 11:35 | Event Note ---
She feels much better. She is having flatus and bowel movements. She has had no nausea or vomiting or abdominal pain. We will remove her nasogastric tube and give her liquids today. Appears her ileus is resolving.
[2016-11-07] MEDS: ENOXAPARIN 40 MG/0.4 ML SYRINGE SUBCUT SCH (12:09)
[2016-11-08] MEDS: ENALAPRIL 2.5 MG/2 ML VIAL IV SCH ×3 (01:21→12:35)
[2016-11-08] MEDS: hydrALAZINE 20 MG/1 ML VIAL IV SCH ×3 (01:27→14:53)
[2016-11-08] MEDS: cefOXitin 1,000 MG in SODIUM CHLORIDE 0.9% 100 ML IV SCH ×3 (04:57→21:14)
[2016-11-08 06:42] LABS: Magnesium 1.6 MG/DL (1.8-2.4); Osmolality,Calculated 275.3 MOS/KG (273-304)
[2016-11-08] MEDS ORDERED: MAGNESIUM SULF RIDER 2 GM in PREMIX 1 EACH IV ONE (08:04)
[2016-11-08] MEDS ORDERED: POTASSIUM CHLORIDE 20 MEQ TABLET PO ONE (08:05)
--- NOTE | 2016-11-08 09:02 | Event Note ---
Original Note: The patient is a 66-year-old female postop day #11 status post right hemicolectomy and small bowel resection for colon cancer. She has developed postoperative ileus and required NG tube placement which appears to be resolving. She feels improved and tolerated clears without difficulty; reports appetite for something more substantial. Slow increase in activity. She reports continued bowel movement with almost normal caliber without melena or hematochezia. Vital signs stable; afebrile. Abdomen: soft, nontender and nondistended. Bowel sounds present. Extremities: Calves are soft and nontender without pedal edema Labs reviewed. H/h stable. Renal function improved Pathology report: invasive mucinous adenocarcinoma; no vero involvement noted. See path report for full details. Assessment and plan The patient is postop day #11 now with resolving postoperative ileus. Advance diet slowly - full liquids today and assess tolerance. Will decrease IVF.
[2016-11-08] MEDS: metFORMIN 500 MG TABLET PO SCH (09:20)
[2016-11-08] MEDS: ALVIMOPAN 12 MG CAPSULE PO SCH ×2 (09:20→21:10)
[2016-11-08] MEDS: PANTOPRAZOLE 40 MG VIAL IV SCH (09:20)
[2016-11-08] MEDS: INSULIN REGULAR 100 UNIT/ML SUBCUT SCH ×4 (09:22→23:09)
[2016-11-08] MEDS: TRAVOPROST 0.004% OPH SOLN 2.5 ML BOTTLE BOTH EYES SCH (09:28)
[2016-11-08] MEDS: FLUOROMETHOLONE 0.1% OPH SUSP 5 ML BOTTLE BOTH EYES SCH ×2 (09:28→21:17)
[2016-11-08] MEDS: ENOXAPARIN 40 MG/0.4 ML SYRINGE SUBCUT SCH (12:35)
--- NOTE | 2016-11-08 14:58 | Hospitalist Progress Note ---
Assessment and Plan (1) Ileus following gastrointestinal surgery Status: Resolved Assessment and plan: This has resolved. The patient has been passing gas and having bowel movements and tolerating clear liquid diet. Will advance as tolerated. 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 Postop hemicolectomy. Routine postop care. Surgery following. Current Visit: Yes (3) Symptomatic anemia Status: Resolved Assessment and plan: Patient was transfused 2 units of packed red blood cells. Hemoglobin has been stable at 9.1 Acute blood loss anemia secondary to colon mass. Current Visit: Yes (4) Iron deficiency anemia Status: Acute Current Visit: Yes Qualifiers: Iron deficiency anemia type: other iron deficiency Qualified Code(s): D50.8 - Other iron deficiency anemias (5) HTN (hypertension) Status: Chronic Current Visit: Yes Qualifiers: Hypertension type: essential hypertension Qualified Code(s): I10 - Essential (primary) hypertension (6) Diabetes mellitus Status: Chronic Current Visit: Yes Qualifiers: Diabetes mellitus type: type 2 Hospitalist: Subjective Interval history: Patient seen and examined. No acute events overnight. Case discussed with nursing staff. Labs reviewed. Patient looks and feels much better today. NG tube is out. She is tolerating clear liquid diet. Discharge planning in progress. Will set up home health at the time of discharge. Exam - Constitutional Vitals: Period Temp Pulse Resp BP Sys/Thompson Pulse Ox Last 24 Hr 98.2 F-98.8 F 92-110 17-20 130-166/60-73 94-98 Exam: Constitutional System: No distress. No tremulousness. Head: Normocephalic, atraumatic. Ears, Nose and Throat System: No pain or tenderness. Eyes System: Pupils equal, round, and reactive. Extraocular muscles intact. Neck: Supple, without adenopathy, No jugular venous distention. No thyromegaly, neck mass, or prior surgery apparent. Respiratory System: Chest clear to auscultation. Cardiovascular System: Heart with regular rate and rhythm. No murmur. GI System: Abdomen soft, mildly tender at the surgical site. Abdominal binder in place. Abdominal wound dressing is clean, dry and intact. Bowel sounds noted Musculoskeletal System: limbs with no pedal edema. Full distal pulses. Normal capillary refill. Neurological System: No discernable sensory deficit. No aphasia Psychiatric System: Conversation is rational Results - Labs CBC & BMP: 11/04/16 05:05 11/08/16 04:25 Lab Results: I have reviewed the past 24 hour labs Quality Measures - VTE Contraindication to Pharmacological VTE Prophylaxis: Active Bleeding
[2016-11-08] MEDS: DEXTROSE 5% NACL 0.45% 1,000 ML IV SCH ×2 (15:15→15:16)
[2016-11-09] MEDS: cefOXitin 1,000 MG in SODIUM CHLORIDE 0.9% 100 ML IV SCH ×2 (04:22→12:44)
[2016-11-09 07:23] LABS: Basophils # 0.1 10*3/uL (0.0-0.2); Basophils % 0.5 % (0.0-0.8); Eosinophils # 0.4 10*3/uL (0.0-0.87); Eosinophils % 3.4 % (0.00-10.9); Hematocrit 30.2 VOL% (35.7-47.0); Hemoglobin 9.7 GM/DL (12.0-16.0); Immature Granulocytes % 0.9 %; Immature Granulocytes Absolute 0.09 #; Lymphocytes % 9.9 % (21.3-54.2); Mean Corpuscular HGB Conc 32.1 GM/DL (32-36); Mean Corpuscular Hemoglobin 24 PG (27-34); Mean Corpuscular Volume 75.7 FL (87-102); Mean Platelet Volume 10.7 FL (9.6-12.0); Monocytes # 0.8 10*3/uL (0.11-0.8); Monocytes % 7.4 % (1.7-12.7); Neutrophils # 8.1 10*3/uL (1.4-7.4); Neutrophils % 77.9 % (38.7-73.9); Platelet Count 617 T/CUMM (130-400); Red Blood Count 3.99 MC/CUMM (3.8-5.5); Red Cell Distribution Width 21.7 % (9.3-17.3); White Blood Count 10.4 T/CUMM (4-12)
[2016-11-09 07:59] LABS: Calcium 8.3 MG/DL (8.5-10.1); Osmolality,Calculated 276.1 MOS/KG (273-304); Potassium 3.3 MMOL/L (3.5-5.1)
[2016-11-09] MEDS: INSULIN REGULAR 100 UNIT/ML SUBCUT SCH ×4 (08:55→21:26)
[2016-11-09] MEDS: ALVIMOPAN 12 MG CAPSULE PO SCH ×2 (08:56→22:24)
[2016-11-09] MEDS: metFORMIN 500 MG TABLET PO SCH (08:56)
[2016-11-09] MEDS: QUINAPRIL 20 MG TABLET PO SCH (08:56)
[2016-11-09] MEDS: TRAVOPROST 0.004% OPH SOLN 2.5 ML BOTTLE BOTH EYES SCH (08:57)
[2016-11-09] MEDS: FLUOROMETHOLONE 0.1% OPH SUSP 5 ML BOTTLE BOTH EYES SCH ×2 (08:57→22:25)
--- NOTE | 2016-11-09 10:12 | Event Note ---
The patient is a 66-year-old female postop day #12 status post right hemicolectomy and small bowel resection for colon cancer. She has developed postoperative ileus and required NG tube placement which appears to be resolving. She feels improved and tolerated full liquids without difficulty. Reports more activity and is in good spirits this morning. She reports continued soft bowel movements without melena or hematochezia. Vital signs stable; afebrile. Abdomen: surgical incision c/d/i with cristina intact; soft, nontender and nondistended. Bowel sounds present. Extremities: Calves are soft and nontender without pedal edema Pathology report: invasive mucinous adenocarcinoma; no vero involvement noted. See path report for full details. Assessment and plan The patient is postop day #12 now with resolved postoperative ileus. Advance to diabetic diet. From surgical standpoint ok to d/c if she tolerates her diet today. F/u appt, wound care instructions, and pain medication placed on chart.
[2016-11-09] MEDS ORDERED: POTASSIUM CHLORIDE 20 MEQ TABLET PO ONE (12:18)
--- NOTE | 2016-11-09 12:21 | Hospitalist Progress Note ---
Assessment and Plan (1) Ileus following gastrointestinal surgery Status: Resolved Assessment and plan: This has resolved. The patient has been passing gas and having bowel movements and tolerating clear liquid diet. Will advance as tolerated. 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 Postop hemicolectomy. Routine postop care. Surgery following. Current Visit: Yes (3) Symptomatic anemia Status: Resolved Assessment and plan: Patient was transfused 2 units of packed red blood cells. Hemoglobin has been stable at 9.1 Acute blood loss anemia secondary to colon mass. Current Visit: Yes (4) Iron deficiency anemia Status: Acute Current Visit: Yes Qualifiers: Iron deficiency anemia type: other iron deficiency Qualified Code(s): D50.8 - Other iron deficiency anemias (5) HTN (hypertension) Status: Chronic Current Visit: Yes Qualifiers: Hypertension type: essential hypertension Qualified Code(s): I10 - Essential (primary) hypertension (6) Diabetes mellitus Status: Chronic Current Visit: Yes Qualifiers: Diabetes mellitus type: type 2 Diabetes mellitus complication status: without complication Diabetes mellitus retirement insulin use: without retirement use Qualified Code(s): E11.9 - Type 2 diabetes mellitus without complications (7) Hypokalemia Status: Acute Assessment and plan: Oral replacement ordered Current Visit: Yes Hospitalist: Subjective Interval history: Patient seen and examined. No acute events overnight. Case discussed with nursing staff. Labs reviewed. Ms. Avina is doing well today. She has no complaints. Anticipating discharge home tomorrow if she tolerates her regular diet well today. IV fluids have been stopped. Antibiotics discontinued as well. Will replace potassium orally. Case discussed with the family at the bedside. Exam - Constitutional Vitals: Period Temp Pulse Resp BP Sys/Thompson Pulse Ox Last 24 Hr 97.5 F-98.5 F 87-98 18-20 123-149/59-70 95-97 Exam: Constitutional System: No distress. No tremulousness. Head: Normocephalic, atraumatic. Ears, Nose and Throat System: No pain or tenderness. Eyes System: Pupils equal, round, and reactive. Extraocular muscles intact. Neck: Supple, without adenopathy, No jugular venous distention. Respiratory System: Chest clear to auscultation. Cardiovascular System: Heart with regular rate and rhythm. No murmur. GI System: Abdomen soft, mildly tender at the surgical site. Abdominal binder in place. Abdominal wound dressing is clean, dry and intact. Bowel sounds noted Musculoskeletal System: limbs with no pedal edema. Full distal pulses. Normal capillary refill. Neurological System: No discernable sensory deficit. No aphasia Psychiatric System: Conversation is rational Results - Labs CBC & BMP: 11/09/16 04:19 11/09/16 04:19 Lab Results: I have reviewed the past 24 hour labs Quality Measures - VTE Contraindication to Pharmacological VTE Prophylaxis: Active Bleeding Specialty Discharge - Follow Up or Referrals Follow up with: Romario Hall MD [Physician] - 11/16/16 10:30 am
[2016-11-09] MEDS: ENOXAPARIN 40 MG/0.4 ML SYRINGE SUBCUT SCH (12:45)
[2016-11-10] MEDS: QUINAPRIL 20 MG TABLET PO SCH (09:00)
[2016-11-10] MEDS: metFORMIN 500 MG TABLET PO SCH (09:00)
[2016-11-10] MEDS: INSULIN REGULAR 100 UNIT/ML SUBCUT SCH (09:01)
[2016-11-10] MEDS: TRAVOPROST 0.004% OPH SOLN 2.5 ML BOTTLE BOTH EYES SCH (09:02)
[2016-11-10] MEDS: ALVIMOPAN 12 MG CAPSULE PO SCH (09:02)
[2016-11-10] MEDS: FLUOROMETHOLONE 0.1% OPH SUSP 5 ML BOTTLE BOTH EYES SCH (09:02)
--- NOTE | 2016-11-10 10:14 | Discharge Summary ---
<Shira Wells - Last Filed: 11/10/16 11:47> Hospital Course - Hospital Course Hospital Course: Ms Avina is a 66-year-old female with a PMHx hypertension, diabetes, Anemia presented to the ED on 10/23/16 as a transfer from [facility] for hemoglobin of 4 and shortness of breath. She received 1 unit of packed red blood cells and transferred to [facility] for admission. She was guaiac positive. In ED: LAB: H&H 6.0 & 19.4. Hospital Services consulted for admission, transfusion PRBCs x 2 units, serial H&H, GI consult, hydration, sliding scale and accu checks. -GI consult and recommendations as: EGD performed on 10/25/16 and significant for small hiatal hernia-otherwise normal EGD. Colonscopy performed on 10/26/16 with biopsies of colonic mass (ascending colon mass) and surgery consulted. -Surgery consulted for ascending colon mass; she was scheduled for right hemicolectomy with ileocolic anastomosis, small bowel resection, cholecystectomy on 10/28/16. Pathology report showed invasive adenocarcinoma arising in a villous adenoma with ulceration and focal marked dysplasia. She will need to follow up with Dr Hall in 1 week after discharge home for staple removal. -Oncology consulted: as followed: Upon discharge she will need a referral to a cancer center in [place] since she has [place]. The daughter will decide if they want to go to [place] or a center in [place] and will let case management aware so referral can be made at the time of discharge. Her postoperative course was complicated with an ileus. She required NG tube placement and continued suctioning for several days. This has now resolved and she is tolerating regular diet and having bowel movements and passing flatus. She has reached maximal benefit from hospitalization and is ready for discharge home. Today 11/10/16 patient is stable and continues to improve. She is tolerating diet well. Repeat labs are stable. She will need to follow up with Oncology as instructed by Dr Pham for further care related to pathology finding of adenocarcinoma. She will need to follow up with Primary Care physician. She will need to follow up in [address] Hall (surgeon) for staple removal . Further recommendations of discharge planning and care to follow per Dr Luong. I have personally seen and examined this patient today. I agree with the below note as prepared by the advanced practice provider. I agree with the assessment and plan. Ms. Avina was seen today with her daughter at the bedside. We discussed her discharge plan and follow-up instructions. She verbalizes her understanding. She looks and feels well today and is excited about going home after 18 days in the hospital. She will be following up with an oncologist in [place] and her primary care physician in [facility]. Specialty Discharge - Follow Up or Referrals Follow up with: Romario Hall MD [Physician] - 11/16/16 10:30 am Discharge Plan - Discharge Data Disposition: Disch To Home/Self Care - Discharge Medications New Hydrocodone/Acetaminophen [Hydrocodon-Acetaminophen 5-325] 1 each PO Q4H PRN #30 tablet PRN Reason: Pain Moderate (4-7) Continue Aspirin 81 mg PO DAILY Magnesium Oxide [Magox 400] 400 mg PO DAILY Ferrous Sulfate 325 mg PO TID Albuterol Sulfate [Proair HFA] 2 puff INH Q4HR PRN PRN Reason: Shortness Of Breath/Wheezing Quinapril HCl 40 mg PO DAILY Tizanidine HCl 2 mg PO BID PRN PRN Reason: Muscle Pain Atorvastatin Calcium 20 mg PO DAILY Potassium Chloride 20 meq PO DAILY Metformin HCl 2,000 mg PO DAILY Travoprost 0.004% Oph Soln [Travatan Z] 1 drop MISC DAILY Fluorometholone 0.1% Oph Susp [FML 0.1% Oph Susp] 1 drop BOTH EYES BID Loratadine 10 mg PO DAILY Ergocalciferol (Vitamin D2) [Vitamin D2] 50,000 unit PO Q7DAY hydroCHLOROthiazide [Hydrochlorothiazide] 25 mg PO DAILY - Follow Up or Referral Follow Up: Romario Hall MD [Physician] - 11/16/16 10:30 am - Forms/Instructions Instructions: Colectomy (DC) Exam - Constitutional Vitals: Period Temp Pulse Resp BP Sys/Thompson Pulse Ox Last 24 Hr 96.8 F-98.2 F 82-98 16-20 129-155/54-70 98-98 Discharge Results Procedures and tests throughout hospitalization: Pending Orders 10/23/16 Red Blood Cells Leuko Red Routine 10/23/16 15:00 Occult Blood, Stool Routine Labs on day of discharge: Labs from last 24 hours 11/10/16 11/09/16 11/09/16 07:28 15:49 12:29 POC Glucose 90 137 H 99 DS: Provider Date of admission: 10/23/16 03:55 Primary care physician: . No PCP Attending physician on admission: Oumou Malik MD Consults: 10/23/16 05:16 Consult to Physician [CONS] Routine Comment: acute blood loss anemia, syptomatic anemia Consulting Provider: Isauro Pennington V When should Consulting Provider be notified: Now Consult to Specialist Group: Gastroenterology When should Consulting Provider be notified: Now 10/26/16 13:25 Consult to Physician [CONS] Routine Comment: Consulting Provider: 10/26/16 13:29 Consult to Physician [CONS] Routine Comment: rt colon mass Consulting Provider: Romario Hall When should Consulting Provider be notified: Now 10/29/16 10:16 Consult to Physical Therapy [CONS] Routine Reason for Physical Therapy: Evaluate and Treat 11/02/16 11:00 Consult to Physician [CONS] Routine Comment: Consulting Provider: Consult to Specialist Group: Oncology When should Consulting Provider be notified: Now 11/08/16 14:57 Consult to Case Mgmt/Social Srvs [CONS] Routine Reason for Case Mgmt/Social Srvs: Home Health Consult Comment: home 11/09 or 13 11/08/16 15:01 Consult to Case Mgmt/Social Srvs [CONS] Routine Reason for Case Mgmt/Social Srvs: Equipment Consult Comment: Needs rollator walker for home use Discharging clinician: Shira Wells NP <Ranjana Luong - Last Filed: 11/10/16 14:07> Hospital Course - Time spent with patient Time with patient DS: Greater than 30 minutes (Total discharge time for this patient, including [id number] time, clinical documentation, medication reconciliation, and discharge planning was 44 minutes.) Diagnosis - Discharge Diagnosis (1) Ileus following gastrointestinal surgery Status: Resolved (2) Colonic mass Status: Acute (3) Symptomatic anemia Status: Chronic (4) Iron deficiency anemia Status: Acute (5) HTN (hypertension) Status: Chronic (6) Diabetes mellitus Status: Chronic (7) Hypokalemia Status: Resolved Discharge Plan - Discharge Data Condition at Discharge: Stable Discharge Diet: advance to your usual diet Activity: increase activity as tolerated, no lifting Hygiene: no restrictions Weight Bearing at Discharge: full weight bearing Contact your physician if you experience:: fever over 101, Difficulty voiding, Redness or swelling, Nausea/Vomiting, Shortness of breath, Bleeding, pain uncontrolled by pain medications DS: Provider Expected date of discharge: 11/10/16
[2016-11-10 11:07] VITALS: BP 146/68
== END 2016-11-10 11:30 | disposition home health service (06) | DRG 330 ==
LOC: EDUNIT# → EDBD → N.ED 00:55 → SUATTDRO 03:55 → N.EDINP 03:55 → N.TELEN 04:24 → N.4E 10-24 10:57
PROVIDERS: ADMIT Internal Medicine; ATTEND Family Medicine
PROC: COLONBX (2016-10-26 10:30)